=== PATIENT | male | born 1955 | race Two or more races ===

== ENCOUNTER 2020-03-17 09:25 | Outpatient (REF) | payer OTHER, SELFPAY | END 2020-03-17 09:26 | disposition home or self-care (01) | LOC: HO.LAB 09:25 | PROVIDERS: PCP Family Medicine; Visit Provider Internal Medicine | DX: Z20.828 Contact with and (suspected) exposure to other viral communicable diseases (principal) | CPT/HCPCS: C9803; U0003 ==

== ENCOUNTER 2020-04-13 07:41 | Outpatient (REF) | payer OTHER, SELFPAY | END 2020-04-13 07:42 | disposition home or self-care (01) | LOC: HO.LAB 07:41 | PROVIDERS: Visit Provider Internal Medicine | DX: Z20.822 Contact with and (suspected) exposure to COVID-19 (principal) | CPT/HCPCS: 36415; C9803; U0003 ==

== ENCOUNTER 2020-05-31 09:28 | Outpatient (REF) | payer OTHER, SELFPAY | END 2020-05-31 09:29 | disposition home or self-care (01) | LOC: HO.LAB 09:28 | PROVIDERS: Visit Provider Internal Medicine | DX: Z20.822 Contact with and (suspected) exposure to COVID-19 (principal) | CPT/HCPCS: 36415; C9803; U0003; U0005 ==

== ENCOUNTER 2020-07-01 09:35 | Outpatient (REF) | payer OTHER, SELFPAY ==
[2020-07-01 11:31] LABS: Alanine Aminotransferase 17 U/L (0-40); Anion Gap 12 (12-20); Aspartate Amino Transferase 19 U/L (5-37); Blood Urea Nitrogen 21 mg/dL (9-16); Carbon Dioxide 29 mmol/L (22-29); Chloride 104 mmol/L (96-108); Estimated Glomerular Filt Rate > 60; Lipase 7 U/L (8-78); Potassium 4.2 mmol/L (3.3-5.1); Sodium 141 mmol/L (135-145)
== END 2020-07-01 09:36 | disposition home or self-care (01) ==
LOC: HO.LAB 09:35
PROVIDERS: PCP Family Medicine; Visit Provider Family Medicine
DX: I10 Essential (primary) hypertension (principal); E78.00 Pure hypercholesterolemia, unspecified; K85.90 Acute pancreatitis without necrosis or infection, unspecified; Z79.899 Other long term (current) drug therapy
CPT/HCPCS: 36415; 80051; 82550; 82565; 83690; 84450; 84460; 84520

== ENCOUNTER 2021-04-06 11:49 | Outpatient (REF) | payer OTHER, SELFPAY ==
[2021-04-06 12:17] LABS: COVID-19 Test Negative (Negative); IDNOW Serial# 16C4AD1C
== END 2021-04-06 11:50 | disposition home or self-care (01) ==
LOC: HO.LAB 11:49
PROVIDERS: Visit Provider Internal Medicine
DX: Z20.822 Contact with and (suspected) exposure to COVID-19 (principal)
CPT/HCPCS: 87635; C9803

== ENCOUNTER 2021-04-12 09:34 | Outpatient (REF) | payer OTHER, SELFPAY ==
[2021-04-12 09:49] LABS: MANUAL DIFF FLAG NO
[2021-04-12 09:57] LABS: Basophils Percent Auto 0.5 % (0-2); Eosinophils Percent Auto 12.4 % (0-4); Hematocrit 42.2 % (42.0-52.0); Hemoglobin 14.2 g/dl (14.0-18.0); Imm Gran Abs Auto 0.02 X10*3/uL (0.00-0.03); Imm Gran Pct Auto 0.3 % (0.0-0.4); Lymphocytes Absolute Auto 1.7 X10*3/uL (1.2-4.9); Lymphocytes Percent Auto 22.3 % (20-40); Mean Corpuscular HGB Conc 33.6 g/dl (31.0-36.0); Mean Corpuscular Hemoglobin 30.7 pg (27.0-33.0); Mean Corpuscular Volume 91.3 fL (80.0-98.0); Mean Platelet Volume 10.7 fL (9.4-12.4); Monocytes Absolute Auto 0.7 X10*3/uL (0.1-1.2); Monocytes Percent Auto 8.5 % (2-11); Neutrophils Absolute Auto 4.3 x10*3/uL (2.0-8.3); Platelet Count 166 X10*3/uL (160-400); Red Blood Count 4.62 X10*6/uL (4.60-5.80); Red Cell Distribution Width 12.1 % (11.0-16.0); White Blood Count 7.7 X10*3/uL (4.8-10.8)
[2021-04-12 10:23] LABS: Alanine Aminotransferase 16 U/L (0-40); Anion Gap 10 (12-20); Aspartate Amino Transferase 16 U/L (5-37); Blood Urea Nitrogen 18 mg/dL (9-16); Carbon Dioxide 32 mmol/L (22-29); Chloride 106 mmol/L (96-108); Estimated Glomerular Filt Rate > 60; Glucose Random 97 mg/dL (60-115); Lipase 14 U/L (8-78); Potassium 4.6 mmol/L (3.3-5.1); Sodium 143 mmol/L (135-145)
== END 2021-04-12 09:35 | disposition home or self-care (01) ==
LOC: HO.LAB 09:34
PROVIDERS: PCP Family Medicine; Visit Provider Family Medicine
DX: I10 Essential (primary) hypertension (principal); E78.00 Pure hypercholesterolemia, unspecified; K85.90 Acute pancreatitis without necrosis or infection, unspecified; Z79.899 Other long term (current) drug therapy
CPT/HCPCS: 36415; 80051; 82550; 82565; 82947; 83690; 84450; 84460; 84520; 85025

== ENCOUNTER 2021-11-17 08:12 | Outpatient (REF) | payer OTHER, SELFPAY ==
[2021-11-17 09:25] LABS: Alanine Aminotransferase 16 U/L (0-40); Amylase 68 U/L (28-100); Anion Gap 13 (12-20); Aspartate Amino Transferase 20 U/L (5-37); Blood Urea Nitrogen 20 mg/dL (9-16); Carbon Dioxide 28 mmol/L (22-29); Chloride 106 mmol/L (96-108); Estimated Glomerular Filt Rate > 60; Glucose Fasting 105 mg/dL (60-99); Lipase 8 U/L (8-78); Potassium 4.5 mmol/L (3.3-5.1); Sodium 142 mmol/L (135-145)
[2021-11-17 10:01] LABS: Estimated Average Glucose 114 mg/dL; Hemoglobin A1c % 5.6 %
== END 2021-11-17 08:13 | disposition home or self-care (01) ==
LOC: HO.LAB 08:12
PROVIDERS: PCP Family Medicine; Visit Provider Family Medicine
DX: I10 Essential (primary) hypertension (principal); E11.9 Type 2 diabetes mellitus without complications; K85.90 Acute pancreatitis without necrosis or infection, unspecified
CPT/HCPCS: 36415; 80051; 82150; 82565; 82947; 83036; 83690; 84450; 84460; 84520

== ENCOUNTER 2022-06-21 08:38 | Outpatient (REF) | payer OTHER, SELFPAY ==
[2022-06-21 10:27] LABS: Alanine Aminotransferase 16 U/L (0-40); Albumin Level 3.9 g/dL (3.5-5.0); Alkaline Phosphatase 86 U/L (39-117); Amylase 73 U/L (28-100); Anion Gap 9 (12-20); Aspartate Amino Transferase 20 U/L (5-37); Bilirubin Direct 0.5 mg/dL (0.0-0.5); Bilirubin Total 1.9 mg/dL (0.0-1.0); Blood Urea Nitrogen 21 mg/dL (9-16); Carbon Dioxide 30 mmol/L (22-29); Chloride 107 mmol/L (96-108); Cholesterol 112 mg/dL; Estimated Glomerular Filt Rate > 60; HDL Cholesterol 30 mg/dL; LDL Cholesterol Calculated 61 mg/dl; Lipase 9 U/L (8-78); Potassium 4.3 mmol/L (3.3-5.1); Sodium 142 mmol/L (135-145); Triglycerides 108 mg/dL
== END 2022-06-21 08:39 | disposition home or self-care (01) ==
LOC: HO.LAB 08:38
PROVIDERS: PCP Family Medicine; Visit Provider Family Medicine
DX: I10 Essential (primary) hypertension (principal); E78.00 Pure hypercholesterolemia, unspecified; Z79.899 Other long term (current) drug therapy; K85.90 Acute pancreatitis without necrosis or infection, unspecified
CPT/HCPCS: 36415; 80051; 80061; 80076; 82150; 82565; 83690; 84520

== ENCOUNTER 2022-10-05 14:11 | Outpatient (REF) | payer OTHER, SELFPAY ==
[2022-10-05 14:40] LABS: MANUAL DIFF FLAG NO
[2022-10-05 15:54] LABS: Basophils Percent Auto 0.6 % (0-2); Eosinophils Absolute Auto 0.8 X10*3/uL (0.0-0.4); Eosinophils Percent Auto 11.4 % (0-4); Hematocrit 39.1 % (42.0-52.0); Hemoglobin 13.1 g/dl (14.0-18.0); Imm Gran Abs Auto 0.02 X10*3/uL (0.00-0.03); Imm Gran Pct Auto 0.3 % (0.0-0.4); Lymphocytes Absolute Auto 1.6 X10*3/uL (1.2-4.9); Lymphocytes Percent Auto 23.2 % (20-40); Mean Corpuscular HGB Conc 33.5 g/dl (31.0-36.0); Mean Corpuscular Hemoglobin 30.7 pg (27.0-33.0); Mean Corpuscular Volume 91.6 fL (80.0-98.0); Mean Platelet Volume 11.6 fL (9.4-12.4); Monocytes Absolute Auto 0.6 X10*3/uL (0.1-1.2); Monocytes Percent Auto 8.2 % (2-11); Neutrophils Absolute Auto 3.8 x10*3/uL (2.0-8.3); Neutrophils Percent Auto 56.3 % (45-73); Platelet Count 150 X10*3/uL (160-400); Red Blood Count 4.27 X10*6/uL (4.60-5.80); Red Cell Distribution Width 12.6 % (11.0-16.0); White Blood Count 6.7 X10*3/uL (4.8-10.8)
[2022-10-05 16:40] LABS: Lipase 18 U/L (8-78)
== END 2022-10-05 14:12 | disposition home or self-care (01) ==
LOC: HO.LAB 14:11
PROVIDERS: PCP Family Medicine; Visit Provider Family Medicine
DX: K21.9 Gastro-esophageal reflux disease without esophagitis (principal); R10.13 Epigastric pain; K85.90 Acute pancreatitis without necrosis or infection, unspecified
CPT/HCPCS: 36415; 83690; 85025

== ENCOUNTER 2022-10-06 15:51 | Outpatient (REF) | payer OTHER, SELFPAY | END 2022-10-06 15:52 | disposition home or self-care (01) | LOC: HO.LNP 15:51 | PROVIDERS: Visit Provider Family Medicine | DX: R10.13 Epigastric pain (principal); K21.9 Gastro-esophageal reflux disease without esophagitis | CPT/HCPCS: 87338 ==

== ENCOUNTER 2023-02-03 08:55 | Outpatient (REF) | payer MEDICARE, SELFPAY ==
[2023-02-03 10:27] LABS: Alanine Aminotransferase 17 U/L (0-40); Anion Gap 9 (12-20); Aspartate Amino Transferase 20 U/L (5-37); Blood Urea Nitrogen 20 mg/dL (9-16); Carbon Dioxide 30 mmol/L (22-29); Chloride 105 mmol/L (96-108); Estimated Glomerular Filt Rate > 60; Lipase 15 U/L (8-78); Potassium 4.3 mmol/L (3.3-5.1); Sodium 140 mmol/L (135-145)
== END 2023-02-03 08:56 | disposition home or self-care (01) ==
LOC: HO.LAB 08:55
PROVIDERS: PCP Family Medicine; Visit Provider Family Medicine
DX: I10 Essential (primary) hypertension (principal); E78.00 Pure hypercholesterolemia, unspecified; Z79.899 Other long term (current) drug therapy; K85.90 Acute pancreatitis without necrosis or infection, unspecified
CPT/HCPCS: 36415; 80051; 82550; 82565; 83690; 84450; 84460; 84520

== ENCOUNTER 2023-03-07 07:15 | Day surgery (SDC) | payer MEDICARE, SELFPAY ==
[2023-03-05 10:52] VITALS: BMI 25.9
--- NOTE | 2023-03-06 08:24 | P.CONAN_ITS ---
Documented by User: Cindy King NP 03/06/23 08:36 HPI - Anesthesia Eval Consult details Narrative: 67yo M for Upper Endoscopy and Colonoscopy CAD s/p CABG. Stable at PCP 12/2022 [facility] Past Medical History Medical History HTN (hypertension) Elevated cholesterol CAD (coronary artery disease) Surgical History Surgical History History of incisional hernia repair Hx of right inguinal hernia repair Hx of endoscopic retrograde cholangiopancreatography H/O colonoscopy History of Whipple procedure Hx of coronary artery bypass graft Social History Social History Patient Tobacco Use Status: Former Tobacco user Are you DNR?: No Advance Directives: No Advance Directives Information Provided: Yes Nutrition Risks: No Nutritional Risk Meds Allergies Allergy/AdvReac Type Severity Reaction Status Date / Time No Known Allergies Allergy Verified 03/07/23 08:42 [No Known Allergies*] Home Medications Medication Instructions Recorded Confirmed Last Taken Type atorvastatin 20 mg tablet 20 mg PO BEDTIME 03/05/23 03/05/23 Unknown History coenzyme Q10 10 mg capsule (Co 10 mg PO DAILY 03/05/23 03/05/23 Unknown History Q-10) [id number]-afceozpy-ezlyemu 2 cap PO BID 03/05/23 03/05/23 Unknown History 6,000-19,000-30,000 unit capsule,delayed rel (Creon) metoprolol succinate 50 mg 50 mg PO DAILY 03/05/23 03/05/23 Unknown History tablet,extended release 24 hr multivitamin 1 tab PO DAILY 03/05/23 03/05/23 Unknown History omeprazole 20 mg capsule,delayed 20 mg PO BEDTIME 03/05/23 03/05/23 Unknown History release Exam Height,Weight and Vital Signs: Height 5 ft 7.5 in Weight 76.204 kg Assessment and Plan Assessment Anesthesia Assessment: Chart Reviewed Documented by User: Sarah Vergara MD 03/07/23 08:59 [facility] Past Medical History Medical History HTN (hypertension) Elevated cholesterol CAD (coronary artery disease) Family History Family history of problems with anesthesia: No Surgical History Surgical History History of incisional hernia repair Hx of right inguinal hernia repair Hx of endoscopic retrograde cholangiopancreatography H/O colonoscopy History of Whipple procedure Hx of coronary artery bypass graft History of Problems with Anesthesia: No Social History Social History Patient Tobacco Use Status: Former Tobacco user Are you DNR?: No Advance Directives: No Advance Directives Information Provided: Yes Nutrition Risks: No Nutritional Risk Meds Allergies Allergy/AdvReac Type Severity Reaction Status Date / Time No Known Allergies Allergy Verified 03/07/23 08:42 [No Known Allergies*] Home Medications Medication Instructions Recorded Confirmed Last Taken Type atorvastatin 20 mg tablet 20 mg PO BEDTIME 03/05/23 03/05/23 Unknown History coenzyme Q10 10 mg capsule (Co 10 mg PO DAILY 03/05/23 03/05/23 Unknown History Q-10) jwogbw-[id number]-mhphttp 2 cap PO BID 03/05/23 03/05/23 Unknown History 6,000-19,000-30,000 unit capsule,delayed rel (Creon) metoprolol succinate 50 mg 50 mg PO DAILY 03/05/23 03/05/23 Unknown History tablet,extended release 24 hr multivitamin 1 tab PO DAILY 03/05/23 03/05/23 Unknown History omeprazole 20 mg capsule,delayed 20 mg PO BEDTIME 03/05/23 03/05/23 Unknown History release Exam Airway Mallampati Class: III TM Dist: >3cm Neck ROM: Full Heart: rrr Lungs: cta Assessment and Plan Assessment Anesthesia Assessment: Anesthesia Plan Discussed Final Anesthetic Review Family History of Problems with Anesthesia: No History of Problems with Anesthesia: No NPO: Yes ASA Class: III Final Preanesthetic Review: No Changes in Pt Med Stat, Meds/Allgs Chart Reviewed, Consent Obtained/Reviewed and Anes Risks/Benef Reviewed Anesthetic Plan Anesthetic Plan: MAC: Disposition: Standard PACU
[2023-03-07 08:42] VITALS: BMI 25.5
[2023-03-07] MEDS: Lactated Ringers 1,000 ML 100 ML IVCONT (08:47)
[2023-03-07 08:49] VITALS: BP 156/77; PULSE 68; RESP 18; TEMP 36.2; O2SAT 97
[2023-03-07 10:39] VITALS: BP 121/75; PULSE 63; RESP 18; TEMP 36.3; O2SAT 95
--- NOTE | 2023-03-07 10:40 | P.BOP_ITS ---
Brief Operative Note Date of Service: 03/07/23 Pre-op diagnosis: Abdominal pain, screening Post-op diagnosis: other (Gastritis, Diverticulosis) Procedure: EGD with biopsies, Colonoscopy to the cecum and TI Surgeon: Ladarius Oneal MD Anesthesia: MAC Was an Infectious Diseases Physician used for this Procedure?: No Estimated blood loss (mL): 2.0 Pathology: other (A. Gastric remnant) Condition: stable Disposition: PACU
[2023-03-07 10:54] VITALS: BP 134/76; PULSE 55; RESP 16; TEMP 36.2; O2SAT 97
--- NOTE | 2023-03-07 11:48 | OP_ITS ---
DATE OF SERVICE: 03/07/2023 SURGEON: Ladarius Oneal MD INDICATIONS: The patient presents for evaluation of abdominal discomfort and colorectal cancer screening. Full consent has been obtained from him for this, including risks of bleeding and perforation. PREOPERATIVE DIAGNOSIS: Abdominal discomfort and colorectal cancer screening. POSTOPERATIVE DIAGNOSIS: PROCEDURE PERFORMED: Esophagogastroduodenoscopy with biopsies and colonoscopy to the cecum and terminal ileum. ESTIMATED BLOOD LOSS: COMPLICATIONS: ANESTHESIA: Monitored anesthesia care. ASSISTANTS: SPECIMENS: POSTOPERATIVE DIAGNOSES: Abdominal discomfort and colorectal cancer screening, gastritis involving the gastric remnant, small hiatal hernia, diverticulosis, small internal hemorrhoids, external hemorrhoids. DESCRIPTION OF PROCEDURE: The patient was placed in the left lateral decubitus position. The Olympus video gastroscope was passed in the posterior oropharynx and upper esophagus under direct vision. The scope was passed slowly to the distal esophagus. The gastroesophageal junction appeared normal at 37 cm. There was no sign of any esophagitis nor Henry esophagus. The scope entered the stomach. There was a small hiatal hernia. The gastric remnant had changes consistent with a probable bile-induced gastritis with some streaks of erythema and edema. There was some minimal friability. The anastomosis was visualized and appeared normal. The small bowel was cannulated and appeared normal as well. The scope was withdrawn back into the gastric remnant. The anastomosis was fully visualized and appeared normal without ulceration nor stricture. The scope was retroflexed visualizing the proximal stomach carefully, which appeared normal, other than the changes of the above mentioned gastritis. The scope was straightened. Biopsies were obtained from the gastric remnant. The scope was withdrawn back in the esophagus. The esophageal mucosa appeared normal. The scope was withdrawn from the patient. He was turned around for the colonoscopy. The digital rectal exam revealed some external hemorrhoids. The Olympus video pediatric colonoscope was entered into the rectum and advanced easily to the cecum. Once in the cecum, I did identify normal-appearing cecal pouch with appendiceal orifice and a normal-appearing ileocecal valve. The terminal ileum was cannulated and appeared normal. The scope was withdrawn back in the colon. The entire cecum and ileocecal valve appeared normal. The scope was then slowly withdrawn assessing all mucosal surfaces carefully. Preparation was excellent. I did not visualize any sign of polyps, colitis, nor angiodysplasia. There was a mild amount of sigmoid diverticulosis. In the rectum, scope was retroflexed visualizing internal hemorrhoids, but no other pathology. The rectal mucosa appeared normal. Scope was straightened and withdrawn from the patient. He tolerated both procedures well and was returned to the recovery area in stable condition. IMPRESSION: 1. Probable bile-induced gastritis involving the gastric remnant. 2. Small hiatal hernia. 3. Diverticulosis. 4. Small internal hemorrhoids. 5. External hemorrhoids. PLAN: The results of the biopsies will be checked. I would recommend a repeat colonoscopy in 5 years for further screening. He was advised to continue his current regimen of the omeprazole, sucralfate, and Creon. If things are stable, he will see me again on a p.r.n. basis. He was advised to resume his aspirin tomorrow, but avoid NSAIDs for at least a week. This has all been discussed with his . MD CARMEN Mchugh/DANIELA / [phone] MTDD
== END 2023-03-07 11:12 | disposition home or self-care (01) ==
PROVIDERS: PCP Family Medicine; Visit Provider Internal Medicine
PROC: (CPT 43239; principal; 2023-03-07 09:30)
DX: Z12.11 Encounter for screening for malignant neoplasm of colon (principal); K57.30 Diverticulosis of large intestine without perforation or abscess without bleeding; K64.8 Other hemorrhoids; K64.4 Residual hemorrhoidal skin tags; R10.84 Generalized abdominal pain; K29.50 Unspecified chronic gastritis without bleeding; K21.9 Gastro-esophageal reflux disease without esophagitis; I25.10 Atherosclerotic heart disease of native coronary artery without angina pectoris; E78.00 Pure hypercholesterolemia, unspecified; I10 Essential (primary) hypertension; Z79.82 Long term (current) use of aspirin; Z79.899 Other long term (current) drug therapy; Z87.891 Personal history of nicotine dependence
CPT/HCPCS: 43239; G0121; 88305; 88342; J2704

== ENCOUNTER 2023-06-06 14:32 | Outpatient (AMB) | payer MEDICARE, MEDICAID, SELFPAY ==
[2023-06-06 14:38] VITALS: BP 138/80; PULSE 61; BMI 25.9
--- NOTE | 2023-06-06 14:38 | MHC.OFFVIS ---
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 In the past, has seen Dr. Rios but not recently. Has a history of coronary artery disease and underwent coronary artery bypass surgery in 2002. Otherwise, it seems that he is generally doing well. Has not had any complaints like angina or shortness of breath or in fact anything cardiac sounding. Within limits of his activity, no major issues. [facility] Medical History (Updated 06/06/23 @ 15:25 by Manoj Chavez MD) Neuropathy COVID DJD (degenerative joint disease) Ampullary adenoma Bleeding hemorrhoids Diverticulosis Atherosclerotic cardiovascular disease Surgical History (Updated 06/06/23 @ 15:25 by Manoj Chavez MD) H/O Whipple procedure S/P CABG x 1 Family History (Updated 06/06/23 @ 14:40 by Gisele Alcala) Mother No problems noted. Brother Heart problem Father Heart problem Social History (Updated 06/06/23 @ 14:41 by Gisele Alcala) Alcohol intake: never Patient Tobacco Use Status: Never used Tobacco Review of Systems Const All systems reviewed & are unremarkable except as noted in HPI and below Reports as per HPI and Reports no additional complaints Eyes Reports as per HPI and Denies no additional complaints ENT Denies no additional complaints and Reports as per HPI Card Reports as per HPI, Reports no additional complaints, Denies acrocyanosis, Denies chest pain, Denies leg edema, Denies lightheadedness, Denies palpitations and Denies dyspnea Resp Reports as per HPI, Denies no additional complaints and Denies dyspnea GI Reports as per HPI and Denies no additional complaints Reports no additional complaints and Reports as per HPI Musc Reports no additional complaints and Reports as per HPI Skin/Breast Reports system reviewed and no additional complaints, except as documented Neuro Reports no additional complaints and Reports as per HPI Psych Reports no additional complaints and Reports as per HPI Endo Reports no additional complaints, Reports as per HPI and Denies palpitations Arvin/Lymph Reports no additional complaints and Reports as per HPI Aller/Immun Reports no additional complaints and Reports as per HPI Physical Exam Vital Signs: Last Vital Signs Pulse 61 06/06/23 14:38 BP 138/80 06/06/23 14:38 BMI result Body Mass Index 25.9 Const General: comfortable and no acute distress Orientation/consciousness: patient oriented x3 HEENT Other: Unremarkable Head: Yes normal to inspection Neck Neck: Yes normal visual inspection Chest Chest palpation & inspection: normal inspection of the chest Resp Auscultation: clear to auscultation bilaterally Cardio Palpation: normal PMI Heart sounds: S1 normal heart sound present, S2 normal heart sound present, no gallops, no murmurs and no rubs GI Palpation (GI): Soft to palpation Back/Spine/Pelvis Other: unremarkable Skin General skin exam: no rashes or lesions noted Neuro General: patient oriented x3 Extrem General: Yes normal to inspection Psych Mental Status: mental status grossly normal Office Procedures EKG Details: EKG with sinus rhythm at 61/Min; can not exclude old inferior infarct; [place]. [address]-[id number], Complete Assessment & Plan Assessment & Plan (1) Status post aorto-coronary artery bypass graft: Code(s): Z95.1 - Presence of aortocoronary bypass graft (2) Atherosclerotic cardiovascular disease: Code(s): I25.10 - Atherosclerotic heart disease of [place] coronary artery without angina pectoris Plan Remote history of coronary artery bypass surgery but otherwise generally stable. Check echocardiogram for cardiac function/wall motion findings/valvular abnormalities. On aspirin/beta-blockers/statins. Check lipids/LFTs. Discussed with significant other. Orders: Orders Liver Panel Today I25.10 - Atherosclerotic heart disease of [place] coronary artery without angina pectoris, Z95.1 - Presence of aortocoronary bypass graft CA echo transthoracic complete Today I25.10 - Atherosclerotic heart disease of [place] coronary artery without angina pectoris, Z95.1 - Presence of aortocoronary bypass graft Lipid Panel Today E78.5 - Hyperlipidemia, unspecified, Z95.1 - Presence of aortocoronary bypass graft Coding Level of Care Code New Pt Level 3 (91714) Diagnoses Status post aorto-coronary artery bypass graft Z95.1 Atherosclerotic cardiovascular disease I25.10 CPT Codes EKG - CPT: 35041-[id number], Complete ([id number])
== END 2023-06-06 14:58 | disposition home or self-care (01) ==
PROVIDERS: PCP Family Medicine; Visit Provider Internal Medicine
DX: Z95.1 Presence of aortocoronary bypass graft (principal); I25.10 Atherosclerotic heart disease of native coronary artery without angina pectoris
CPT/HCPCS: 93010; 99203

== ENCOUNTER → 2023-06-06 14:32 | Outpatient (BNVA) | payer MEDICARE, MEDICAID, SELFPAY | PROVIDERS: PCP Family Medicine; Visit Provider Internal Medicine | DX: I25.10 Atherosclerotic heart disease of native coronary artery without angina pectoris (principal); Z95.1 Presence of aortocoronary bypass graft | CPT/HCPCS: 93005; 99202 ==

== ENCOUNTER 2023-06-11 08:55 | Outpatient (REF) | payer MEDICARE, MEDICAID, SELFPAY ==
[2023-06-11 09:55] LABS: Estimated Average Glucose 114 mg/dL; Hemoglobin A1c % 5.6 % (<6.0)
[2023-06-11 10:10] LABS: Glucose Fasting 94 mg/dL (60-99); Lipase 14 U/L (8-78)
[2023-06-11 10:13] LABS: Alanine Aminotransferase 16 U/L (0-40); Albumin Level 3.8 g/dL (3.5-5.0); Alkaline Phosphatase 101 U/L (39-117); Aspartate Amino Transferase 19 U/L (5-37); Bilirubin Direct 0.4 mg/dL (0.0-0.5); Bilirubin Total 1.1 mg/dL (0.0-1.0); Cholesterol 101 mg/dL (<200); HDL Cholesterol 31 mg/dL (>40); LDL Cholesterol Calculated 49 mg/dL (<100); Total Protein 6.5 g/dL (6.5-8.0); Triglycerides 107 mg/dL (<150)
[2023-06-11 10:51] LABS: Creatinine Urine 262.39 mg/dL; Microalbum/Creatinine Ratio Ur 3.8 ug/mg cr (<30)
== END 2023-06-11 08:56 | disposition home or self-care (01) ==
LOC: HO.LAB 08:55
PROVIDERS: Absent Provider Family Medicine; PCP Family Medicine; Visit Provider Internal Medicine
DX: K85.90 Acute pancreatitis without necrosis or infection, unspecified (principal); E11.9 Type 2 diabetes mellitus without complications; E78.5 Hyperlipidemia, unspecified; Z95.1 Presence of aortocoronary bypass graft
CPT/HCPCS: 36415; 80061; 80076; 82043; 82570; 82947; 83036; 83690

== ENCOUNTER → 2023-06-29 13:55 | Outpatient (REF) | payer MEDICARE, MEDICAID, SELFPAY ==
--- NOTE | 2023-06-29 14:00 | CA_ITS ---
Transthoracic Echocardiogram Patient (Last, First, Middle): Waqar Yen, Gender: Male Date of : 1955 Age: 67 Procedure Date: 06/29/2023 Procedure Type: Transthoracic Echocardiogram Location: OP Height: 170.18 cm Weight: 75.3 kg BSA: 1.87 m2 Heart Rate: bpm BP: 115 / 70 mmHg Builder Operator: NING Referring MD: Manoj Chavez MD Symptoms: I25.10 - Atherosclerotic heart disease of [place] coronary artery without... Study Quality: Fair ECG Rhythm: Sinus Conclusions: - Normal left ventricular cavity size. There is normal left ventricular wall thickness. The left ventricular systolic function is mildly decreased. The visually estimated ejection fraction is between 40-45%. - The inferolateral wall, the basal inferior, mid inferior, and basal inferoseptal segments are akinetic. - Normal right ventricular cavity size. There is mildly decreased right ventricular systolic function. Findings Left Ventricle Normal left ventricular cavity size. There is normal left ventricular wall thickness. The left ventricular systolic function is mildly decreased. The visually estimated ejection fraction is between 40-45%. Abnormal diastolic function is noted. Spectral Doppler is indicative of an impaired relaxation filling pattern. E/E prime ratio is between 8 and 15 consistent with indeterminate filling pressures. Wall Motion Rest Echo Findings The inferolateral wall, the basal inferior, mid inferior, and basal inferoseptal segments are akinetic. Right Ventricle Normal right ventricular cavity size. There is mildly decreased right ventricular systolic function. Atria The left atrium is normal in size. The right atrium is normal in size. Aortic Valve Normal aortic valve structure and function. There is no aortic valve stenosis. There is no aortic valve regurgitation. Mitral Valve Normal mitral valve structure and function. There is trace mitral valve regurgitation. There is no mitral valve stenosis. Pulmonic Valve Normal pulmonic valve structure and function. There is trace pulmonic valve regurgitation. Tricuspid Valve Normal tricuspid valve structure. There is trace tricuspid valve regurgitation. Tricuspid regurgitation envelope is inadequate for calculation of right ventricular systolic pressure. Indeterminate right atrial pressure. Great Vessels All visible segments of the aorta are normal in size. The visualized portions of the pulmonary artery and branches are normal. Venous The inferior vena cava was not well visualized. Pericardium/Pleural Prominent epicardial adipose tissue noted. There is no evidence of pericardial effusion. Prior Study Comparison Changes noted compared to prior study dated: 07/21/2016. EF 40-45%, basal to mid inferior and inferolateral [place] are akinetic. basal inferior septum is also akinetic. Mild RV dysfunction. Measurements 2D Linear Measurements IVSd: 0.72 0.6-0.9/0.6-1.0 cm LVIDd: 5.42 3.9-5.3/4.2-5.9 cm LVIDd Index: 2.90 2.4-3.2/2.2-3.1 cm/m2 LVIDs: 3.88 2.0-3.6 cm LVPWd: 0.94 0.7-1.1 cm LA Diam: 4.60 2.7-3.8/3.0-4.0 cm LAIDs Index: 2.46 1.5-2.3 cm/m2 LV Mass: 202.72 67-162/88-224 g LV Mass Index: 108.41 43-95/49-115 g/m2 LVOT Diam: 2.20 3.0+(-)1.3 cm 2D Systolic Function EF 4C: 47.80 >55% EF 2C: 57.70 >55% EF BiP: 52.30 >55% Mitral Valve MV Pk E: 0.76 MV PK A: 0.76 MV Decel Time: 205.00 E/A: 1.00 E'Lateral: 11.10 E'Medial: 5.55 E/E' Med: 13.70 E/E' Lat: 6.80 PHT: 60.00 MVA PHT: 3.67 Decel [place]: 3.69 Aortic Valve AoV Pk Jabari: 1.21 AoV Mn Jabari: 0.78 AoV VTI: 0.24 AoV Pk Grad: 6.00 Aov Mn Grad: 3.00 VITALIY Cont.VTI: 3.12 LVOT LVOT Pk Jabari: 0.97 LVOT Mn Jabari: 0.62 LVOT VTI: 0.20 LVOT Pk Grad: 4.00 LVOT Mn Grad: 2.00 LVOT Diam: 2.20 LVOT Area: 3.80 Diastolic Function MV Pk E: 0.76 MV Pk A: 0.76 E/A: 1.00 E'Medial: 5.55 E/E' Med: 13.70 E' Laterial: 11.10 E/E' Lat: 6.80 Right Ventricle TAPSE (mm): 14.10 TVS' Jabari: 10.00 Great Vessels Aorta Sinus of Valsalva: 3.60 2.0-3.5 cm Ao Asc: 3.40 2.1-3.4 cm Pulmonary Valve PV Pk Jabari: 1.25 Peak PV Grad: 6.00 Updated in Other Vendor System with Status of Final Omid Navarro MD electronically signed on 06/30/2023 6:36:04 PM with status of Final
== END ==
LOC: HO.CARD 13:55
PROVIDERS: PCP Family Medicine; Visit Provider Internal Medicine
DX: I25.10 Atherosclerotic heart disease of native coronary artery without angina pectoris (principal); Z95.1 Presence of aortocoronary bypass graft
CPT/HCPCS: 93306

== ENCOUNTER → 2023-06-29 14:00 | Outpatient (BNV) | payer MEDICARE, MEDICAID, SELFPAY | PROVIDERS: PCP Family Medicine; Visit Provider Internal Medicine Cardiovascular Disease | DX: I25.10 Atherosclerotic heart disease of native coronary artery without angina pectoris (principal); R93.1 Abnormal findings on diagnostic imaging of heart and coronary circulation | CPT/HCPCS: 93306 ==

== ENCOUNTER → 2023-07-30 08:01 | Outpatient (REF) | payer MEDICARE, MEDICAID, SELFPAY ==
--- NOTE | ~2023-07-30 | NM_ITS ---
EXERCISE MYOCARDIAL PERFUSION STUDY INDICATION: Chest pain, assess for coronary disease and ischemia TECHNIQUE: The patient was brought in for an exercise perfusion study on 07/30/2023. Patient performed exercise as per Brad protocol and was injected 25 mCi of sestamibi once target heart rate was achieved. Images were obtained using the SPECT gamma camera interlaced with the gating device. Images were obtained in supine position. Resting perfusion study was performed on 07/31/2023. Patient was administered 25 mCi of sestamibi intravenously at rest. Images were then obtained in supine position. Images were processed with the software and compared side to side in short axis, horizontal long axis and vertical long axis views. Total DLP 111mGy-cm. FINDINGS: Raw images were reviewed. The stress perfusion study showed diminished tracer uptake along the inferior wall. There is improvement with CT attenuation correction and hence could've components of diaphragmatic attenuation artifact. The gated study shows diminished LV systolic function with calculated LVEF of 43%. LV cavity is normal in size. The gated study shows diminished contractility in the inferior wall. Resting study shows reduced perfusion in the inferior wall but slight improvement compared to stress perfusion. There is also probably some subdiaphragmatic uptake interfering. Gating at rest reveals reduced contractility in the inferior wall. The findings are consistent with perfusion defect in the basal to mid inferior/inferoseptal/inferolateral wall with reversible and fixed components. NM/NM cardiolite stress test IMPRESSION: 1. Myocardial perfusion imaging study shows mixed ischemia/infarction pattern in the basal to mid inferior wall and adjacent infero-septal, inferolateral wall. 2. Gated LVEF is 43% during stress and 32% during rest. 3. Transient ischemic dilatation not present. EKG component of the test reported separately.
--- NOTE | 2023-07-30 08:03 | CA_ITS ---
Acquisition Time: 2023-07-30 08:03:27 Total Exercise Time: 00:07:12 Test Indications: Chest Pain Medications: ASA ATORVASTATIN CREON METOPROLOL OMEPRAZOLE Protocol: PRANAV Max HR: 151 BPM 97% of Pred: 155 BPM Max BP: 180/078 mmHG Max Work Load: 8.8 METS Exercise stress test exercise 7 min 12 sec of Pranav protocol achieving 95% MPHR, with mild SOB, no chest discomfort, with isolated PVCs, with resting HTN, normotensive response to exercise, wqithout EKG changes from baseline. Nuclear images pending. Test reviewed with Dr. Cobos Referred By: Manoj Chavez Overread By: Meena Pereira
== END ==
LOC: HO.CARD 08:01
PROVIDERS: PCP Family Medicine; Visit Provider Internal Medicine
DX: R07.2 Precordial pain (principal)
CPT/HCPCS: 78452; 93017; A9500

== ENCOUNTER → 2023-07-30 08:03 | Outpatient (BNV) | payer MEDICARE, MEDICAID, SELFPAY | PROVIDERS: PCP Family Medicine; Visit Provider Nurse Practitioner | DX: R07.9 Chest pain, unspecified (principal) | CPT/HCPCS: 78452; 93016; 93018 ==

== ENCOUNTER 2023-08-31 13:32 | Outpatient (REF) | payer MEDICARE, MEDICAID, SELFPAY ==
--- NOTE | ~2023-08-31 | CT_ITS ---
EXAMINATION: CT ABDOMEN WITHOUT CONTRAST CLINICAL INFORMATION: Rule out ventral hernia and hiatal hernia. COMPARISON: CT abdomen and pelvis 09/20/2016. TECHNIQUE: Contiguous axial thin section helical images of the abdomen were performed without contrast. The data set was reformatted in the coronal and sagittal planes and reviewed on an independent workstation. This CT examination was performed using dose optimization techniques as appropriate, variously including the following: *Automated exposure control *Adjustment of mA and/or kV according to patient size (this includes techniques or standardized protocols for targeted exams where dose is matched to indication/reason for exam; i.e. extremities or head) *Use of iterative reconstruction technique DLP: 301 mGy-cm FINDINGS: LUNG BASES: Scarring or atelectasis at the lung bases. Micronodule right lower lobe series 6 image 74 is stable compared to prior. Median sternotomy. Significant coronary artery calcium. No hiatal hernia. LIVER, GALLBLADDER, BILIARY TREE: Noncontrast attenuation of the liver appears normal. No discrete liver mass. Pneumobilia. Cholecystectomy. PANCREAS: Status post Whipple. No discrete pancreatic mass or pancreatic ductal dilatation. SPLEEN: Normal size spleen. ADRENAL GLANDS AND KIDNEYS: No adrenal mass. No nephrolithiasis or hydronephrosis. BOWEL LOOPS: The small and large bowel are normal in caliber. Whipple reconstruction. Appendix appears normal. Mild colonic diverticulosis in the distal colon. LYMPH NODES: No bulky adenopathy. VASCULAR: Mild aortoiliac atherosclerosis. No aortic aneurysm. BONES: Mild degenerative changes in the spine. ABDOMINAL WALL: Small fat-containing umbilical hernia. Midline surgical changes. No visible ventral hernia. CT/CT abdomen wo IV con IMPRESSION: Status post Whipple. No hiatal hernia or ventral hernia. Small fat-containing umbilical hernia.
[2023-08-31] MEDS: Barium Sulfate Oral (Berry) 450 ML ORAL.SUSP PO (14:59)
== END 2023-08-31 13:33 | disposition home or self-care (01) ==
LOC: HO.CT 13:32
PROVIDERS: PCP Family Medicine; Visit Provider Family Medicine
DX: R10.13 Epigastric pain (principal)
CPT/HCPCS: 74150

== ENCOUNTER 2023-09-17 14:40 | Outpatient (AMB) | payer MEDICARE, MEDICAID, SELFPAY ==
[2023-09-17 14:48] VITALS: BP 132/64; BMI 26.0
--- NOTE | 2023-09-17 14:48 | A.OFFVIS_ITS ---
Vital Signs 09/17/23 14:48 Height 5 ft 7 in Weight 166 lb 3.657 oz BMI 26.0 BP 132/64 Blood Pressure Location Rt brachial Position Sitting Intake Visit Reasons: following up with Stress tests Allergies No Known Allergies [No Known Allergies*] Allergy (Verified 09/17/23 14:49) Medication List - Last Reconciled 09/17/23 by Manoj Chavez MD aspirin (Adult Aspirin Regimen) 81 mg PO DAILY atorvastatin 20 mg PO BEDTIME coenzyme Q10 (Co Q-10) 10 mg PO DAILY eumcao-ggnfvmcc-ruiquur 6,000-19,000 -30,000 unit (Creon) 2 caps PO BID ylwmrs-jbreucfa-htkxzpn 6,000-19,000 -30,000 unit (Creon) caps PO metoprolol succinate ER 50 mg PO DAILY multivitamin 1 tab PO DAILY omeprazole 20 mg PO DAILY HPI Comments Details: Waqar returns for follow-up. Recently seen in consultation regarding coronary disease. In the past, has seen Dr. Rios but not recently. Has a history of coronary artery disease and underwent coronary artery bypass surgery in 2002. Overall, he is doing good. No cardiac symptoms whatsoever. [facility] Medical History Neuropathy COVID DJD (degenerative joint disease) Ampullary adenoma Bleeding hemorrhoids Diverticulosis Atherosclerotic cardiovascular disease HTN (hypertension) Elevated cholesterol CAD (coronary artery disease) Surgical History H/O Whipple procedure S/P CABG x 1 History of incisional hernia repair Hx of right inguinal hernia repair Hx of endoscopic retrograde cholangiopancreatography H/O colonoscopy History of Whipple procedure Hx of coronary artery bypass graft Family History Mother No problems noted. Brother Heart problem Father Heart problem Social History Alcohol intake: never Patient Tobacco Use Status: Never used Tobacco Review of Systems Const All systems reviewed & are unremarkable except as noted in HPI and below Reports as per HPI and Reports no additional complaints Eyes Reports as per HPI and Denies no additional complaints ENT Denies no additional complaints and Reports as per HPI Card Reports as per HPI, Reports no additional complaints, Denies acrocyanosis, Denies chest pain, Denies leg edema, Denies lightheadedness, Denies palpitations and Denies dyspnea Resp Reports as per HPI, Denies no additional complaints and Denies dyspnea GI Reports as per HPI and Denies no additional complaints Reports no additional complaints and Reports as per HPI Musc Reports no additional complaints and Reports as per HPI Skin/Breast Reports system reviewed and no additional complaints, except as documented Neuro Reports no additional complaints and Reports as per HPI Psych Reports no additional complaints and Reports as per HPI Endo Reports no additional complaints, Reports as per HPI and Denies palpitations Arvin/Lymph Reports no additional complaints and Reports as per HPI Aller/Immun Reports no additional complaints and Reports as per HPI Physical Exam Vital Signs: Last Vital Signs BP 132/64 09/17/23 14:48 BMI result Body Mass Index 26.0 Const General: comfortable and no acute distress Orientation/consciousness: patient oriented x3 HEENT Other: Unremarkable Head: Yes normal to inspection Neck Neck: Yes normal visual inspection Chest Chest palpation & inspection: normal inspection of the chest Resp Auscultation: clear to auscultation bilaterally Cardio Palpation: normal PMI Heart sounds: S1 normal heart sound present, S2 normal heart sound present, no gallops, no murmurs and no rubs GI Palpation (GI): Soft to palpation Back/Spine/Pelvis Other: unremarkable Skin General skin exam: no rashes or lesions noted Neuro General: patient oriented x3 Extrem General: Yes normal to inspection Psych Mental Status: mental status grossly normal Assessment & Plan Assessment & Plan (1) Status post aorto-coronary artery bypass graft: Code(s): Z95.1 - Presence of aortocoronary bypass graft Category: Medical (2) Atherosclerotic cardiovascular disease: Code(s): I25.10 - Atherosclerotic heart disease of [place] coronary artery without angina pectoris Category: Medical Plan Cardiac studies reviewed. Echocardiogram with LVEF of 40-45%. Inferior, inferoseptal, inferolateral akinesis. No significant valvular findings. Myocardial perfusion imaging study shows mixed ischemia/infarction pattern in the basal to mid inferior wall as well as adjacent inferoseptal/inferolateral goodrich. Overall, abnormal testing as above, remote CABG history, but clinically absolutely no symptoms. In this instance, we can continue medical management at least for the time being. We discussed about chest pain type symptoms and that he should report to us immediately. In that instance, he will need a diagnostic catheterization. Otherwise, we can continue to follow medically. Discussed with significant other. Total time spent including review of data, counseling, documentation, coordination care-31 minutes. Coding Level of Care Code Est Pt Level 4 (32925) Diagnoses Status post aorto-coronary artery bypass graft Z95.1 Atherosclerotic cardiovascular disease I25.10
== END 2023-09-17 15:05 | disposition home or self-care (01) ==
PROVIDERS: PCP Family Medicine; Visit Provider Internal Medicine
DX: Z95.1 Presence of aortocoronary bypass graft (principal); I25.10 Atherosclerotic heart disease of native coronary artery without angina pectoris
CPT/HCPCS: 99214

== ENCOUNTER → 2023-09-17 14:40 | Outpatient (BNVA) | payer MEDICARE, MEDICAID, SELFPAY | PROVIDERS: PCP Family Medicine; Visit Provider Internal Medicine | DX: I25.10 Atherosclerotic heart disease of native coronary artery without angina pectoris (principal); Z95.1 Presence of aortocoronary bypass graft | CPT/HCPCS: 99212 ==

== ENCOUNTER 2023-12-04 12:26 | Outpatient (AMB) | payer MEDICARE, MEDICAID, SELFPAY ==
[2023-12-04 12:28] VITALS: BP 118/76; PULSE 68; BMI 25.8
--- NOTE | 2023-12-04 12:28 | A.OFFVIS_ITS ---
Vital Signs 12/04/23 12:28 Height 5 ft 7 in Weight 164 lb 7.437 oz BMI 25.8 BP 118/76 Blood Pressure Location Rt brachial Position Sitting Pulse 68 Pulse Source Pulse Oximeter Intake Visit Reasons: 6 mth f/up Office Automation Clerk Required: No Accompanied by: Spouse Allergies No Known Allergies [No Known Allergies*] Allergy (Verified 09/17/23 14:49) Medication List - Last Reconciled 12/04/23 by Manoj Chavez MD aspirin (Adult Aspirin Regimen) 81 mg PO DAILY atorvastatin 20 mg PO BEDTIME coenzyme Q10 (Co Q-10) 10 mg PO DAILY gltyhf-vmdfunyj-xquuznx 6,000-19,000 -30,000 unit (Creon) 2 caps PO BID metoprolol succinate ER 50 mg PO DAILY multivitamin 1 tab PO DAILY omeprazole 20 mg PO DAILY HPI Comments Details: Waqar returns for follow-up. Originally seen in consultation regarding coronary disease. In the past, has seen Dr. Rios. Has a history of coronary artery disease and underwent coronary artery bypass surgery in 2002. Overall, no specific cardiac complaints. Apparently walks pretty much all day and does not have any symptoms like chest pain. He even walks up inclines and states he feels fine. [facility] Medical History Neuropathy COVID DJD (degenerative joint disease) Ampullary adenoma Bleeding hemorrhoids Diverticulosis Atherosclerotic cardiovascular disease HTN (hypertension) Elevated cholesterol CAD (coronary artery disease) Surgical History H/O Whipple procedure S/P CABG x 1 History of incisional hernia repair Hx of right inguinal hernia repair Hx of endoscopic retrograde cholangiopancreatography H/O colonoscopy History of Whipple procedure Hx of coronary artery bypass graft Family History Mother No problems noted. Brother Heart problem Father Heart problem Social History Alcohol intake: never Patient Tobacco Use Status: Never used Tobacco Review of Systems Const Denies chills, Denies fatigue, Denies fever(s), Denies weight gain and Denies weight loss ENT Denies dizziness Card Denies chest pain, Denies leg edema, Denies lightheadedness, Denies palpitations, Denies dyspnea on exertion, Denies orthopnea and Denies other Resp Denies cough and Denies dyspnea on exertion GI Denies hematochezia and Denies change in stool character Musc Denies abnormal gait, Denies muscle weakness, Denies numbness, Denies radiating pain into limb and Denies tingling Neuro Denies abnormal gait, Denies dizziness, Denies numbness and Denies tingling Endo Denies fatigue and Denies palpitations Physical Exam Vital Signs: Last Vital Signs Pulse 68 12/04/23 12:28 BP 118/76 12/04/23 12:28 BMI result Body Mass Index 25.8 Const General: comfortable and no acute distress Orientation/consciousness: patient oriented x3 HEENT Other: Unremarkable Head: Yes normal to inspection Neck Neck: Yes normal visual inspection Chest Chest palpation & inspection: normal inspection of the chest Resp Auscultation: clear to auscultation bilaterally Cardio Palpation: normal PMI Heart sounds: S1 normal heart sound present, S2 normal heart sound present, no gallops, no murmurs and no rubs GI Palpation (GI): Soft to palpation Back/Spine/Pelvis Other: unremarkable Skin General skin exam: no rashes or lesions noted Neuro General: patient oriented x3 Extrem General: Yes normal to inspection Psych Mental Status: mental status grossly normal Assessment & Plan Assessment & Plan (1) Atherosclerotic cardiovascular disease: Code(s): I25.10 - Atherosclerotic heart disease of [place] coronary artery without angina pectoris Category: Medical (2) Status post aorto-coronary artery bypass graft: Code(s): Z95.1 - Presence of aortocoronary bypass graft Category: Medical Plan Cardiac studies reviewed. Echocardiogram with LVEF of 40-45%. Inferior, inferoseptal, inferolateral akinesis. No significant valvular findings. Myocardial perfusion imaging study shows mixed ischemia/infarction pattern in the basal to mid inferior wall as well as adjacent inferoseptal/inferolateral goodrich. Overall, abnormal testing as above, remote CABG history, but clinically absolutely no symptoms. Findings discussed with patient and significant other. We can keep him on aspirin, beta-blockers and statins. If any concerns like angina, he will need a diagnostic catheterization. We also discussed about that today. He understands very well. He will contact us with any specific concerns. Otherwise, follow-up in 6 months. Total time spent including review of data, counseling, documentation, coordination care-32 minutes. Coding Level of Care Code Est Pt Level 4 (02147) Diagnoses Atherosclerotic cardiovascular disease I25.10 Status post aorto-coronary artery bypass graft Z95.1
== END 2023-12-04 12:43 | disposition home or self-care (01) ==
PROVIDERS: PCP Family Medicine; Visit Provider Internal Medicine
DX: I25.10 Atherosclerotic heart disease of native coronary artery without angina pectoris (principal); Z95.1 Presence of aortocoronary bypass graft
CPT/HCPCS: 99214

== ENCOUNTER → 2023-12-04 12:26 | Outpatient (BNVA) | payer MEDICARE, SELFPAY | PROVIDERS: PCP Family Medicine; Visit Provider Internal Medicine | DX: I25.10 Atherosclerotic heart disease of native coronary artery without angina pectoris (principal); Z95.1 Presence of aortocoronary bypass graft | CPT/HCPCS: 99212 ==

== ENCOUNTER 2023-12-28 09:58 | Outpatient (REF) | payer MEDICARE, MEDICAID, SELFPAY ==
--- NOTE | ~2023-12-28 | XR_ITS ---
EXAMINATION: XR CHEST 2 VIEWS CLINICAL INFORMATION: HTN, ATELECTASIS COMPARISON: Prior chest x-ray September 20, 2016 TECHNIQUE: XR CHEST 2 VIEWS, 2 Views Lungs and Clair: Both lungs are clear. Pleura: Normal. Costophrenic angles are sharp. No pneumothorax. Heart: The heart is normal in size. Mediastinum: Sternotomy wires are stable.. Bones: Skeletal structures included are normal for patient's age. XR/XR chest 2V IMPRESSION: No radiographic evidence of acute cardiopulmonary disease. Electronically signed by: Alvarez Reyes MD 12/28/2023 04:14 PM EDT
[2023-12-28 11:39] LABS: Anion Gap 9 (12-20); Blood Urea Nitrogen 23 mg/dL (9-16); Carbon Dioxide 32 mmol/L (22-29); Chloride 105 mmol/L (96-108); Estimated Glomerular Filt Rate > 60; Potassium 4.3 mmol/L (3.3-5.1); Sodium 142 mmol/L (135-145)
== END 2023-12-28 09:59 | disposition home or self-care (01) ==
LOC: HO.LAB 09:58
PROVIDERS: Visit Provider Family Medicine
DX: I10 Essential (primary) hypertension (principal)
CPT/HCPCS: 36415; 71046; 80051; 82565; 84520

== ENCOUNTER 2024-05-19 12:35 | Outpatient (AMB) | payer MEDICARE, MEDICAID, SELFPAY ==
--- NOTE | 2024-05-19 12:38 | A.OFFVIS_ITS ---
Vital Signs 05/19/24 12:39 Height 5 ft 7 in Weight 163 lb BMI 25.5 BP 128/62 Blood Pressure Location Lt brachial Position Sitting Pulse 56 Pulse Source Monitor Intake Visit Reasons: 6 mth f/up Administrative Personal Assistant Required: Yes Administrative Personal Assistant Services: Administrative Personal Assistant Offered & Declined Allergies No Known Allergies [No Known Allergies*] Allergy (Verified 09/17/23 14:49) Medication List - Last Reconciled 05/19/24 by Manoj Chavez MD aspirin (Adult Aspirin Regimen) 81 mg PO DAILY atorvastatin 20 mg PO BEDTIME lhkkip-lfhpyosl-tyvswtl 6,000-19,000 -30,000 unit (Creon) 2 caps PO BID metoprolol succinate ER 50 mg PO DAILY multivitamin 1 tab PO DAILY omeprazole 20 mg PO DAILY HPI Comments Details: Waqar returns for follow-up regarding coronary artery disease. In the past, has seen Dr. Rios. History of coronary disease and bypass surgery in 2002. Overall, he states he feels good. No anginal-type symptoms. He states he has had Whipple procedure in the past for pancreas issues and he gets pain in the epigastrium; he states he can clearly differentiate cardiac pains from pancreatic pains. Repeatedly asked and he states that the pain see gets are only from pancreas especially if he misses some medications like pancreatic enzymes. [facility] Medical History Neuropathy COVID DJD (degenerative joint disease) Ampullary adenoma Bleeding hemorrhoids Diverticulosis Atherosclerotic cardiovascular disease HTN (hypertension) Elevated cholesterol CAD (coronary artery disease) Surgical History H/O Whipple procedure S/P CABG x 1 History of incisional hernia repair Hx of right inguinal hernia repair Hx of endoscopic retrograde cholangiopancreatography H/O colonoscopy History of Whipple procedure Hx of coronary artery bypass graft Family History Mother No problems noted. Brother Heart problem Father Heart problem Social History Alcohol intake: never Patient Tobacco Use Status: Never used Tobacco Review of Systems Const Denies weakness ENT Denies dizziness Card Denies chest pain, Denies chest pain with activity, Denies syncope, Denies rapid heart rate, Denies pedal edema, Denies edema, Denies leg edema, Denies lightheadedness, Denies palpitations, Denies dyspnea, Denies dyspnea on exertion and Denies orthopnea Resp Denies cough, Denies dyspnea and Denies dyspnea on exertion GI Denies hematochezia and Denies change in stool character Musc Denies abnormal gait, Denies muscle cramps, Denies muscle weakness, Denies numbness, Denies radiating pain into limb and Denies tingling Neuro Denies abnormal gait, Denies dizziness, Denies syncope, Denies numbness, Denies tingling and Denies weakness Endo Denies palpitations Physical Exam Vital Signs: Last Vital Signs Pulse 56 05/19/24 12:39 BP 128/62 05/19/24 12:39 BMI result Body Mass Index 25.5 Const General: comfortable and no acute distress Orientation/consciousness: patient oriented x3 HEENT Other: Unremarkable Head: Yes normal to inspection Neck Neck: Yes normal visual inspection Chest Chest palpation & inspection: normal inspection of the chest Resp Auscultation: clear to auscultation bilaterally Cardio Palpation: normal PMI Heart sounds: S1 normal heart sound present, S2 normal heart sound present, no gallops, no murmurs and no rubs GI Palpation (GI): Soft to palpation Back/Spine/Pelvis Other: unremarkable Skin General skin exam: no rashes or lesions noted Neuro General: patient oriented x3 Extrem General: Yes normal to inspection Psych Mental Status: mental status grossly normal Office Procedures EKG Details: EKG with sinus bradycardia at 56/Min; cannot exclude old inferior infarct; [place] [id number], Complete Assessment & Plan Assessment & Plan (1) Atherosclerotic cardiovascular disease: Code(s): I25.10 - Atherosclerotic heart disease of [place] coronary artery without angina pectoris Category: Medical (2) Status post aorto-coronary artery bypass graft: Code(s): Z95.1 - Presence of aortocoronary bypass graft Category: Medical Plan Cardiac studies reviewed. Echocardiogram 2023 with LVEF of 40-45%. Inferior, inferoseptal, inferolateral akinesis. No significant valvular findings. Myocardial perfusion imaging study 2023 shows mixed ischemia/infarction pattern in the basal to mid inferior wall as well as adjacent inferoseptal/inferolateral goodrich. In the exercise component, he reached 8.8 METS exercise capacity and 95% of max predicted heart rate. Overall, abnormal testing as above, remote CABG history, but clinically absolutely no symptoms. Treat for stable coronary disease. Continue aspirin, beta-blockers, statins. In the future, if any clear concerns like angina, we will need a diagnostic catheterization. We discussed about this today and he understands. Discussed with significant other. Follow-up in 6 months. Coding Level of Care Code Est Pt Level 4 (66155) Complex EM visit Add On G2211 Diagnoses Atherosclerotic cardiovascular disease I25.10 Status post aorto-coronary artery bypass graft Z95.1 CPT Codes EKG - CPT: 43096-Isnhgzvtzdeybllds, Complete ([id number])
[2024-05-19 12:39] VITALS: BP 128/62; PULSE 56; BMI 25.5
--- OUTSIDE RECORDS SUMMARY | 2024-05-19 14:42 | XMS_ITS ---
Author Organization [facility] Address [address] [place] [id number] Care Team Providers Care Textiles Sales Representative Name Role Phone Philip Banks MD Primary Care Provider Unavailab Ladarius Helms Unavailable [phone] ruben sterling Unavailable Unavailable REASON FOR VISIT Patient presents today for a upper abd pain MEDICATIONS Medication SIG (Take, Route, Frequency, Duration) Notes Start Date End Date Status Atorvastatin Calcium 10 MG 1 tablet Oral ly Once a day for 30 day(s) Active Multivitamin Adults - as directed Orally as directed Active Co Q 10 10 MG 1 capsule with a augustus l Orally Once a day for 30 day(s) Active Omeprazole 20 MG TAKE 1 CAPSULE BY [facility] EVERY DAY AT BEDTIME DIRECTED Oral for 90 Active Metoprolol Succinate ER 50 MG TAKE 1 TABLET BY MOUTH EVERY DAY Oral for 90 Active Aspir-81 81 MG 1 tablet Orally Once a day Active Creon 6000 UNIT as directed Orally t a day Active Carafate 1 GM 1 tablet Orally Tw day--take 2 hours after your morning meal and two hours after your evening meal for 30 days 12/07/2022 Active SOCIAL HISTORY Sex Assigned At : Social History Observation Description Sex Assigned At Unknown Alcohol Screen Question Answer Notes Did you have a drink containing alcohol in the p ast year? No Points 0 Interpretation Negative PROBLEMS Problem Type ICD Code Onset Dates Problem Status W/U Status Risk SNOMED Code Notes Problem Gastroesophageal reflux disease, unspecified whether esophagitis present (K21.9) Active confirmed 904447239 Problem Abdominal pain, generalized (R10.84) Active confirmed 434470681 VITAL SIGNS Temperature 97.1 degrees Fahrenheit 12/08/19 23 Blood pressure systolic 000 mm Hg 12/08/19 23 Blood pressure diastolic 00 mm Hg 023 Height 67.50 in 12/07/2022 Weight 168 lbs 12/07/2022 BMI 25.92 kg/m2 12/07/2022 Encounters Encounter Location Date Provider Diagnosis [facility] [address] [place] [address] 12/07/2022 Ladarius Oneal Encounter for screen ing for malignant neoplasm of colon Z12.11 ; Abdominal pain, generalized R10.84 ; Ampullary adenoma D13.5 and Gastroesophageal reflux disease, unspecified whether esophagitis present K21.9 ASSESSMENTS Encounter Date Diagnosis Assessment Notes Treatment Notes Treatment Clinical Notes 12/07/2022 Encounter for screen ing for malignant neoplasm of colon (ICD-10 - Z12.11) Stop aspirin for three days before the procedures 12/07/2022 Abdominal pain, generalized (ICD-10 - R10.84) 12/07/2022 Ampullary adenoma (ICD-10 - D13.5) 12/07/2022 Gastroesophageal ref lux disease, unspecified whether esophagitis present (ICD-10 - K21.9) PLAN OF TREATMENT Medication Medication Name Sig Start Date Stop Date Notes Carafate 1 GM 1 tablet Orally Twic e day--take 2 hours after your morning meal and two hours after your evening meal for 30 days 12/07/2022 Treatment Notes Assessment Notes Encounter for screening for malignant neoplasm of colon Stop aspirin for three days before the procedures Future Test Test Name Order Date UPPER GI ENDOSCOPY 12/07/2022 COLONOSCOPY 12/07/2022 Next Appt Details Follow Up: prn, Reason: Progress Notes * Examination Category Sub-Category Detail Notes General Examination GENERAL APPEARANCE: pleasant , well nourished, well developed, in no acute distress EYES: sclera non-icteric NECK/THYROID: no cervical lymphade nopathy, neck supple HEART: S1, S2 normal LUNGS: clear to auscultatio n bilaterally ABDOMEN: normal bowel sounds, no guarding or rigidity, no hepatosplenomegaly, no masses palpable, soft, nontender, nondistended. NEUROLOGIC: alert and oriented SKIN: nonjaundiced, no spi radha angiomata. EXTREMITIES: no edema ORAL CAVITY: mucosa moist
--- OUTSIDE RECORDS SUMMARY | 2024-05-19 14:42 | XMS_ITS | Patient Health Record ---
Author Organization [facility] Address [address] [place] [address] Care Team Providers Care Supervisor [place] Name Role Phone Philip Banks MD Primary Care Provider Unavailab Ladarius Helms Unavailable [phone] ruben sterling Unavailable Unavailable REASON FOR REFERRAL No Information MEDICATIONS Medication SIG (Take, Route, Frequency, Duration) Notes Start Date End Date Status Aspir-81 81 MG 1 tablet Orally Once a day Active Creon 6000 UNIT as directed Orally t wice a day Active Atorvastatin Calcium 10 MG 1 tablet Oral ly Once a day for 30 day(s) Active Multivitamin Adults - as directed Orally as directed Active Sucralfate 1 GM TAKE 1 TABLET TWICE A DAY--TAKE 2 HOURS AFTER YOUR MORNING MEAL AND 2 HOURS AFTER YOUR EVENING MEAL for 90 Active Co Q 10 10 MG 1 capsule with a augustus l Orally Once a day for 30 day(s) Active Omeprazole 20 MG TAKE 1 CAPSULE BY [facility] EVERY DAY AT BEDTIME DIRECTED Oral for 90 Active Metoprolol Succinate ER 50 MG TAKE 1 TABLET BY MOUTH EVERY DAY Oral for 90 Active SOCIAL HISTORY Sex Assigned At : Social History Observation Description Sex Assigned At Unknown Alcohol Screen Question Answer Notes Did you have a drink containing alcohol in the p ast year? No Points 0 Interpretation Negative PROBLEMS Problem Type ICD Code Onset Dates Problem Status W/U Status Risk SNOMED Code Notes Problem Encounter for screening for malignant neoplasm of colon (Z12.11) Active confirmed 249594663 Problem Diverticulosis of large intestine without perforation or abscess without bleeding (K57.30) Active confirmed Diverticul ar disease of colon (414568129) Problem Gastritis, chronic (K29.50) Active confirmed Chronic gastritis (1967977) Problem Ampullary adenoma (D13.5) Active confirmed 335923644 Problem Abdominal pain, generalized (R10.84) Active confirmed 332956256 Problem 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) Active confirmed 533943237 Problem Gastroesophageal reflux disease, unspecified whether esophagitis present (K21.9) Active confirmed 700880855 PLAN OF TREATMENT Future Test Test Name Order Date COLONOSCOPY 02/07/2011 COLONOSCOPY 05/21/2018 UPPER GI ENDOSCOPY 12/07/2022 COLONOSCOPY 12/07/2022 Insurance Providers Payer Name Payer Address Payer Phone Subscriber Number Group Number Insured Name Patient Relationship to Insured Coverage Start Date Coverage End Date MEDICARE OF [place] [address] [place] [address] [id number] WAYNE GRAHAM Self - patient is the insured MEDICAL (GENERAL) HISTORY Medical History History ICD Code Hypertension Hyperlipidemia CAD-CABG as below Denies ID,DM,CVA,Lung disease,renal dise ase Tubulovillous adenoma of major papilla a s below Screening colonoscopy in 2011 was neg. 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 Oglesby at [facility]. He describes a wound infection requiring a wound-vac Incisional hernia 12/2016-Dr. Oglesby x2
--- OUTSIDE RECORDS SUMMARY | 2024-05-19 14:42 | XMS_ITS ---
Author Organization [facility] Address [address] [place] [address] Care Team Providers Care Toolroom Helper Name Role Phone Philip Banks MD Primary Care Provider Unavailab Ladarius Helms Unavailable [phone] oyula, ignatiuis Unavailable Unavailable REASON FOR VISIT abdominal pain, gerd,screening PROBLEMS Problem Type ICD Code Onset Dates Problem Status W/U Status Risk SNOMED Code Notes Problem Diverticulosis of large intestine without perforation or abscess without bleeding (K57.30) Active confirmed Diverticul ar disease of colon (256861349) Problem Gastritis, chronic (K29.50) Active confirmed Chronic gastritis (9343250) Encounters Encounter Location Date Provider Diagnosis [facility] [address] [place] [id number] 03/07/2023 Ladarius Oneal Encounter for scre ening colonoscopy Z12.11 ; Diverticulosis of large intestine without perforation or abscess without bleeding K57.30 ; Internal hemorrhoids K64.8 ; Gastritis, chronic K29.50 ; Hiatal hernia K44.9 and Abdominal pain R10.9 ASSESSMENTS Encounter Date Diagnosis Assessment Notes Treatment Notes Treatment Clinical Notes 03/07/2023 Encounter for screening colonoscopy (ICD-10 - Z12.11) 03/07/2023 Diverticulosis of large intestine without perforation or abscess without bleeding (ICD-10 - K57.30) 03/07/2023 Internal hemorrhoids (ICD-10 - K64.8) 03/07/2023 Gastritis, chronic (ICD-10 - K29.50) 03/07/2023 Hiatal hernia (ICD-1 0 - K44.9) 03/07/2023 Abdominal pain (ICD-10 - R10.9) PLAN OF TREATMENT No Information
== END 2024-05-19 12:57 | disposition home or self-care (01) ==
PROVIDERS: PCP Family Medicine; Visit Provider Internal Medicine
DX: I25.10 Atherosclerotic heart disease of native coronary artery without angina pectoris (principal); Z95.1 Presence of aortocoronary bypass graft
CPT/HCPCS: 93010; 99214; G2211

== ENCOUNTER → 2024-05-19 12:35 | Outpatient (BNVA) | payer MEDICARE, SELFPAY | PROVIDERS: PCP Family Medicine; Visit Provider Internal Medicine | DX: I25.10 Atherosclerotic heart disease of native coronary artery without angina pectoris (principal); I10 Essential (primary) hypertension; Z95.1 Presence of aortocoronary bypass graft | CPT/HCPCS: 93005; 99212 ==

== ENCOUNTER 2024-06-05 10:26 | Outpatient (REF) | payer MEDICARE, MEDICAID, SELFPAY ==
[2024-06-05 12:06] LABS: Alanine Aminotransferase 34 U/L (0-40); Anion Gap 10 (12-20); Aspartate Amino Transferase 34 U/L (5-37); Blood Urea Nitrogen 25 mg/dL (9-16); Carbon Dioxide 30 mmol/L (22-29); Chloride 107 mmol/L (96-108); Cholesterol 123 mg/dL (<200); Estimated Glomerular Filt Rate > 60; HDL Cholesterol 35 mg/dL (>40); LDL Cholesterol Calculated 62 mg/dL (<100); Potassium 4.4 mmol/L (3.3-5.1); Sodium 143 mmol/L (135-145); Triglycerides 134 mg/dL (<150)
== END 2024-06-05 10:27 | disposition home or self-care (01) ==
LOC: HO.LAB 10:26
PROVIDERS: PCP Family Medicine; Visit Provider Family Medicine
DX: I10 Essential (primary) hypertension (principal); E78.00 Pure hypercholesterolemia, unspecified
CPT/HCPCS: 36415; 80051; 80061; 82550; 82565; 84450; 84460; 84520

== ENCOUNTER 2024-06-13 15:25 | Outpatient (AMB) | payer MEDICARE, MEDICAID, SELFPAY ==
[2024-06-13 15:59] VITALS: BP 126/80; PULSE 64; O2SAT 96; BMI 26.4
--- NOTE | 2024-06-13 15:59 | A.OFFPC_ITS ---
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: No Accompanied by: Self / Same As Patient Allergies No Known Allergies [No Known Allergies*] Allergy (Verified 06/13/24 16:48) Medication List - Last Reconciled 06/13/24 by Ronan Lomas MD aspirin (Adult Aspirin Regimen) 81 mg PO DAILY atorvastatin 20 mg PO BEDTIME klobll-ctyeahnp-cchppsm 6,000-19,000 -30,000 unit (Creon) 2 caps PO BID metoprolol succinate ER 50 mg PO DAILY multivitamin 1 tab PO DAILY omeprazole 20 mg PO DAILY Tobacco use date assessed: 06/13/24 Fall risk assessment: No Falls in past year Last assessed Fall Risk: 06/13/24 Dental Screening Dental Screen Date: 06/13/24 Did you have a dental visit in the last 12 months?: Yes Did you have a dental problem in the last 6 months where you did not have access to dental care?: No Was dental information given to patient?: Patient has dentist HPI establish care HPI Details Patient comes in today to establish care - he is transferring over from Dr. Philip Banks Patient states that he currently feels okay except for increased pain over both shoulders, which he states have been bothering him for a few weeks now Notes that his shoulder pain is slightly worse on the left side He denies any recent injury or trauma to his shoulders States that he has been taking some OTC Ibuprofen lately but they only help slightly and temporarily He denies any headaches or dizziness Denies any chest pains, no shortness of breath No nausea/vomiting, no abdominal pain No change in bowel habits noted He had some follow up labs done last week - to discuss his results [facility] Medical History (Updated 06/14/24 @ 02:47 by Ronan Lomas MD) Pure hypercholesterolemia Neuropathy COVID DJD (degenerative joint disease) Ampullary adenoma Bleeding hemorrhoids Diverticulosis Atherosclerotic cardiovascular disease HTN (hypertension) Elevated cholesterol CAD (coronary artery disease) Surgical History (Updated 06/14/24 @ 02:50 by Ronan Lomas MD) H/O Whipple procedure S/P CABG x 1 History of incisional hernia repair Hx of right inguinal hernia repair Hx of endoscopic retrograde cholangiopancreatography H/O colonoscopy History of Whipple procedure Hx of coronary artery bypass graft Family History Mother No problems noted. Brother Heart problem Father Heart problem Social History Housing: House Alcohol intake: never Patient Tobacco Use Status: Never used Tobacco e-Cigarette/Vaping Use: Never Used Second Hand Smoke Exposure: No service: No Current occupational status: unemployed Current occupational exposures/hazards: No Cognitive needs: No Hearing needs: No Vision needs: No Questionnaire PHQ-9 Over the last 2 weeks, how often have you been bothered by any of the following problems? 1. Little interest or pleasure in doing things: not at all 2. Feeling down, depressed, or hopeless: not at all 3. Trouble falling or staying asleep, or sleeping too much: not at all 4. Feeling tired or having little energy: not at all 5. Poor appetite or overeating: not at all 6. Feeling bad about yourself - or that you are a failure or have let yourself or your family down: not at all 7. Trouble concentrating on things, such as reading the newspaper or watching television: not at all 8. Moving or speaking so slowly that other people could have noticed. Or the opposite - being so fidgety or restless that you have been moving around a lot more than usual: not at all 9. Thoughts that you would be better off or of hurting yourself in some way: not at all Total score: 0 Depression Screening Interpretation: Negative Depression Screening Done: Yes 45079 - PHQ-9 Billing: Yes Source: Developed by Drs. Ladarius Concepcion, Karen Heredia, Shelton Diaz and colleagues, with an educational fanny from [employer]. Thrive Questionnaire Date Thrive assessed: 06/13/24 I am a: Patient What is your living situation today?: I have a steady place to live Within the past 12 months, did the food you bought not last and you didn't have the money to get more?: I choose not to answer this question Within the past 12 months, did you worry whether your food would run out before you got money to buy more?: I choose not to answer this question Do you have trouble paying for medicines?: No Do you have trouble getting transportation to medical appointments?: No Do you have trouble paying your heating and electricity bill?: Yes Do you have trouble taking care of your child, family member or friend?: No Do you have trouble with day-to-day activities such as bathing, preparing meals, shopping, managing finances, etc.?: No Are you currently unemployed and looking for a job?: No Are you interested in more education?: No Please select the resources that you would like help with: Job search/training and None Currently or been in a relationship where the following occur: No concerns repor bharathi THRIVE Score: 1 AUDIT C Alcohol Use Questionnaire (AUDIT-C) 1. How often do you have a drink containing alcohol?: Never 3. How often do you have six or more drinks on one occasion?: Never Total Score: 0 Score Reviewed/Action Taken: Yes KATHLEEN-7 AMB Questionnaire KATHLEEN-7 Date KATHLEEN - 7 assessed: 06/13/24 Feeling nervous, anxious, or on edge: 0 = Not at all Not being able to stop or control worryin = Not at all Worrying too much about different things: 0 = Not at all Trouble relaxin = Not at all Being so restless that it is hard to sit still: 0 = Not at all Becoming easily annoyed or irritable: 0 = Not at all Feeling afraid as if something awful might happen: 0 = Not at all Total KATHLEEN-7 score (0-4 normal; 5-9 mild; 10-14 moderate; 15-21 severe): 0 Source: Developed by Drs. Ladarius Concepcion, Karen Heredia, Shelton Diaz and colleagues, with an educational fanny from [employer]. Review of Systems Const Denies chills, Denies fatigue, Denies fever(s) and Denies headache(s) ENT Denies dysphagia, Denies dizziness, Denies otalgia, Denies headache(s), Denies neck pain, Denies odynophagia and Denies sore throat Card Denies chest pain, Denies palpitations and Denies dyspnea Resp Denies chest congestion, Denies cough and Denies dyspnea GI Denies abdominal pain, Denies constipation, Denies dysphagia, Denies heartburn, Denies diarrhea, Denies nausea, Denies odynophagia and Denies vomiting Denies difficulty urinating, Denies dysuria, Denies nocturia and Denies urinary frequency Musc Denies back pain, Reports arthralgias (over both shoulders, L > R) and Denies neck pain Skin/Breast Denies rash Neuro Denies dizziness and Denies headache(s) Endo Denies fatigue and Denies palpitations Physical exam (Primary Care) Vital Signs: Last Vital Signs Pulse 64 06/13/24 15:59 BP 126/80 06/13/24 15:59 Pulse Ox 96 06/13/24 15:59 Oxygen Delivery Method Room Air 06/13/24 15:59 BMI result Body Mass Index 26.4 Tobacco/Smoking Status: Tobacco use Status Tobacco use date assessed 06/13/24 06/13/24 16:00 Patient Tobacco Use Status Never used Tobacco 06/13/24 16:00 e-Cigarette/Vaping Use Never Used 06/13/24 16:07 PHQ-9: PHQ-9 Score PHQ-9: Total score 0 06/13/24 16:54 Depression Screening Interpretation: Negative Thrive Assessment: Date of Thrive Assessment Date Thrive assessed 06/13/24 06/13/24 16:00 Currently or been in a relationship where the following occur: No concerns reported Const General: no acute distress and alert HENMT Ears: TM's normal bilaterally and EAC's normal Throat: Yes posterior oropharynx normal and Yes tonsils normal (no TP congestion) Neck Neck: Yes no lymphadenopathy and Yes supple Resp Auscultation: clear to auscultation bilaterally, no rales and no wheezes Cardio Rate: regular rate Rhythm: regular rhythm Heart sounds: no murmurs GI Palpation (GI): Soft to palpation, nontender and No hepatosplenomegaly present Skin General skin exam: no rashes or lesions noted Extrem General: Yes no clubbing, cyanosis or edema Results Reviewed Results Reviewed: Laboratory Tests 06/05/24 10:52 Sodium 143 Potassium 4.4 Creatinine 0.71 Estimated GFR > 60 AST 34 ALT 34 Triglycerides 134 Cholesterol 123 LDL Cholesterol, Calc 62 HDL Cholesterol 35 L Coding Level of Care Code New Pt Level 4 (96123) Diagnoses Atherosclerotic cardiovascular disease I25.10 Pure hypercholesterolemia E78.00 Bilateral shoulder pain, unspecified chronicity M25.511; M25.512 Chronicity: unspecified H/O Whipple procedure Z90.410; Z90.49 Additional Codes PHQ-9 - 29678 - PHQ-9 Billing: Yes ([id number]) Assessment & Plan Assessment & Plan (1) Atherosclerotic cardiovascular disease: Code(s): I25.10 - Atherosclerotic heart disease of [place] coronary artery without angina pectoris Category: Medical Plan: S/P CABG back in 2002 Echocardiogram done last year (06/2023) revealed normal left ventricular cavity size and normal left ventricular wall thickness. The left ventricular systolic function is mildly decreased, with the visually estimated ejection fraction between 40-45%. The inferolateral wall, the basal inferior, mid inferior, and basal inferoseptal segments are all akinetic. The right ventricular cavity is normal in size and there is mildly decreased right ventricular systolic function Patient is asymptomatic from a cardiovascular standpoint Continue Aspirin 81 mg QD and Metoprolol ER 50 mg QD Follow up with cardiology as scheduled (2) Pure hypercholesterolemia: Code(s): E78.00 - Pure hypercholesterolemia, unspecified Category: Medical Plan: Results of his labs done last week reviewed and discussed with patient Reinforced low cholesterol diet Continue Atorvastatin 20 mg QD Will recheck his labs and fasting lipids in 4 months for follow up (3) Bilateral shoulder pain: Code(s): M25.511 - Pain in right shoulder; M25.512 - Pain in left shoulder Category: Medical Qualifiers: Chronicity: unspecified Qualified Code(s): M25.511 - Pain in right shoulder; M25.512 - Pain in left shoulder Plan: Will send patient for x-rays of both shoulders for further evaluation Have advised him that with his cardiac and surgical history, taking NSAIDs in general (including Ibuprofen) is not recommended Will try him instead on Celecoxib 200 mg but have advised him to take this only on an as-needed basis and always with food If his x-rays reveal (+) significant findings and having to take some Rx for pain for a longer period of time is anticipated, will then need to reassess his Rx (4) H/O Whipple procedure: Comment: 2017 - likely due to pancreatic cancer or chronic pancreatitis Code(s): Z90.410 - Acquired total absence of pancreas; Z90.49 - Acquired absence of other specified parts of digestive tract Category: Surgical Plan: Continue Creon 2 capsules BID and Omeprazole 20 mg QD Follow up with GI as scheduled Plan Follow up in 6 months Orders: Orders XR shoulder RT min 2V 06/13/24 M25.511 - Pain in right shoulder Complete Blood Count Auto Diff 4 Months D64.9 - Anemia, unspecified Lipid Panel 4 Months E78.00 - Pure hypercholesterolemia, unspecified Comprehensive [place]. Panel Fast 4 Months E78.00 - Pure hypercholesterolemia, unspecified UA CC w/rflx Micro + Cult 4 Months R30.0 - Dysuria XR shoulder LT min 2V 06/13/24 M25.512 - Pain in left shoulder TSH reflex Free T4 4 Months E78.00 - Pure hypercholesterolemia, unspecified Vitamin D 25-OH Total 4 Months E55.9 - Vitamin D deficiency, unspecified Medications: New celecoxib Take with food only as needed for severe pain 200 mg PO DAILY 30 days PRN 30 caps 0RF severe pain
== END 2024-06-13 17:06 | disposition home or self-care (01) ==
LOC: HO.HMCH 15:26
PROVIDERS: PCP Family Medicine; Visit Provider Internal Medicine
DX: I25.10 Atherosclerotic heart disease of native coronary artery without angina pectoris (principal); E78.00 Pure hypercholesterolemia, unspecified; M25.511 Pain in right shoulder; M25.512 Pain in left shoulder; Z90.410 Acquired total absence of pancreas; Z90.49 Acquired absence of other specified parts of digestive tract

== ENCOUNTER → 2024-06-13 15:25 | Outpatient (BNVA) | payer MEDICARE, MEDICAID, SELFPAY | PROVIDERS: PCP Family Medicine; Visit Provider Internal Medicine | DX: I25.10 Atherosclerotic heart disease of native coronary artery without angina pectoris (principal); E78.00 Pure hypercholesterolemia, unspecified; M25.511 Pain in right shoulder; M25.512 Pain in left shoulder; Z90.410 Acquired total absence of pancreas; Z90.49 Acquired absence of other specified parts of digestive tract | CPT/HCPCS: 96127; 99202 ==

== ENCOUNTER 2024-07-02 08:02 | Outpatient (REF) | payer MEDICARE, MEDICAID, SELFPAY ==
--- NOTE | ~2024-07-02 | XR_ITS ---
CLINICAL HISTORY: M25.511 - Pain in right shoulder 3 views left shoulder Comparison: None Findings: No fractures or dislocations No significant arthritic change. A 3 mm soft tissue calcification is located adjacent to the humerus deeper tuberosity supraspinatus tendon insertion site No radiopaque foreign body Normal visualized left chest Impression: Supraspinatus calcific tendinitis. Joint distances are normal. No acute findings. 3 views right shoulder Comparison: none. Findings: No fractures or dislocations. No significant arthritic change. No radiopaque foreign body. Normal visualized right chest. Impression: Unremarkable right shoulder. No acute skeletal abnormality. This document has been electronically signed by: Brian Sommer MD on 07/03/2024 13:08:28
--- OUTSIDE RECORDS SUMMARY | 2024-07-02 08:08 | XMS_ITS ---
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 Role Phone Philip Banks MD Primary Care Provider Unavailab Ladarius Helms Unavailable [phone] oyula, ignatiuis Unavailable Unavailable REASON FOR VISIT abdominal pain, gerd,screening Problems Problem Type SNOMED Code ICD Code Onset Dates Problem Status W/U Status Risk Notes Problem Diverticular disease of colon (602198532) Diverticulosis of large intestine without perforation or abscess without bleeding (K57.30) Active confirmed Problem Chronic gastritis (6337411) Gastritis, chronic (K29.50) Active confirmed Encounters Encounter Location Date Provider Diagnosis [facility] Outpatient [address] [place] [address] [id number] 03/07/2023 Ladarius Oneal Encounter for scre ening colonoscopy Z12.11 ; Diverticulosis of large intestine without perforation or abscess without bleeding K57.30 ; Internal hemorrhoids K64.8 ; Gastritis, chronic K29.50 ; Hiatal hernia K44.9 and Abdominal pain R10.9 Assessments Encounter Date Diagnosis (ICD Code) Assessment Notes Treatment Notes Treatment Clinical Notes Section Notes 03/07/2023 Encounter for screening colonoscopy (ICD-10 - Z12.11) 03/07/2023 Diverticulosis of large intestine without perforation or abscess without bleeding (ICD-10 - K57.30) 03/07/2023 Internal hemorrhoids (ICD-10 - K64.8) 03/07/2023 Gastritis, chronic (ICD-10 - K29.50) 03/07/2023 Hiatal hernia (ICD-10 - K44.9) 03/07/2023 Abdominal pain (ICD-10 - R10.9) Plan Of Treatment No Information Progress Notes * WAYNE GRAHAMDOB:1955 (68 yo M)Acc No.[id number]:03/07/2023 EGD and COL/MAC Patient:?WAYNE GRAHAM Provider:?Ladarius Oneal MD :1955???Age:67 Y???Sex:Male Ricardo e:03/07/2023 Address:[address] [place], [place] [id number] Pcp:Philip Banks MD Subjective: * Chief Complaints: * ???1. Abdominal pain, gerd,s creening. * Medical History:? Objective: * Vitals:? Assessment: * Assessment: 1.?Encounter for screening c olonoscopy - Z12.11 (Primary)???2.?Diverticulosis of large intestine without perforation or abscess without bleeding - K57.30???3.?Internal hemorrhoids - K64.8???4.?Gastritis, chronic - K29.50?? 5.?Hiatal hernia - K44.9???6.?Abdominal pain - R10.9??? Plan: * Treatment: * Procedure Codes:?G0121 COLOR EC CNCR SCR;COLNSCPY NO HI RSK, 0529F INTRVL 3+YRS PTS CLNSCP DOCD, 0528F RCMND FLW-UP 10 YRS DOCD, Modifiers: 1P , 58891 UPPER GI ENDOSCOPY, BIOPSY * * The named appointment provid er may or may not be the originator of this progress note, and it is not deemed complete until electronically signed by the appointment provider. Sign off status: Pending * Provider:?Ladarius Oneal MD Date:? 023 Generated for Shoni silvano/Angelina/eTransmitting on:?07/02/2024 08:07 AM EDT
--- OUTSIDE RECORDS SUMMARY | 2024-07-02 08:08 | XMS_ITS | Patient Health Record ---
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 No Points 0 Interpretation Negative Section Notes: He does not smoke or use any significant amounts of alcohol He does not smoke or use any significant amounts of alcohol He does not smoke or use any significant amounts of alcohol Problems Problem Type SNOMED Code ICD Code Onset Dates Problem Status W/U Status Risk Notes Problem [id number] Encounter for screening for malignant neoplasm of colon (Z12.11) Active confirmed Problem Diverticular disease of colon (945138894) Diverticulosis of large intestine without perforation or abscess without bleeding (K57.30) Active confirmed Problem Chronic gastritis (8165832) Gastritis, chronic (K29.50) Active confirmed Problem [id number] Ampullary adenom a (D13.5) Active confirmed Problem 320826664 Abdominal pain, generalized (R10.84) Active confirmed Problem 813080650 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) Active confirmed Problem 578259577 Gastroesophageal reflux disease, unspecified whether esophagitis present (K21.9) Active confirmed Plan Of Treatment Future Test Test Name Order Date COLONOSCOPY 02/07/2011 COLONOSCOPY 05/21/2018 UPPER GI ENDOSCOPY 12/07/2022 COLONOSCOPY 12/07/2022 Insurance Providers Payer Name Payer Address Payer Phone Subscriber Number Group Number Insured Name Patient Relationship to Insured Coverage Start Date Coverage End Date MEDICARE OF [place] [address] [place] [address] [id number] WAYNE GRAHAM Self - patient is the insured Medical (General) History Medical History History ICD Code Hypertension Hyperlipidemia CAD-CABG as below Denies MA,DM,CVA,Lung disease,renal dise ase Tubulovillous adenoma of major papilla a s below Screening colonoscopy in 2011 was neg. e xcept for a hyperplastic polyp Negative screening colonoscopy in 07/2018 Surgical History Surgery Date(Month/Year) 4 V CABG 2002 Whipple surgery in 07/2016 fo r villous adenoma of the major ampulla-Dr. Oglesby at [facility]. He describes a wound infection requiring a wound-vac Incisional hernia 12/2016-Dr. Oglesby x2
== END 2024-07-02 08:03 | disposition home or self-care (01) ==
LOC: HO.XRAY 08:02
PROVIDERS: PCP Internal Medicine; Visit Provider Internal Medicine
DX: M25.511 Pain in right shoulder (principal); M25.512 Pain in left shoulder
CPT/HCPCS: 73030

== ENCOUNTER → 2024-07-02 08:07 | Outpatient (BNV) | payer MEDICARE, MEDICAID, SELFPAY | PROVIDERS: PCP Internal Medicine; Visit Provider Radiology Diagnostic Radiology | DX: M25.511 Pain in right shoulder (principal) | CPT/HCPCS: 73030 ==

== ENCOUNTER 2024-07-21 10:56 | Emergency (ER) | payer MEDICARE, MEDICAID, SELFPAY ==
--- NOTE | ~2024-07-21 | XR_ITS ---
EXAMINATION: XR CHEST CLINICAL INFORMATION: pneumoina. coughing COMPARISON: December 28, 2023. TECHNIQUE: Frontal view of the chest was obtained. FINDINGS: Asymmetric haziness in the mid to lower left hemithorax. No pneumothorax. No hyperinflation. Sternal wires. Cardiomediastinal silhouette size is normal with a prominent pulmonary artery outflow and a round cardiac apex. Vascular clips in the epigastric and right upper quadrant of the abdomen. S-shaped curvature of the thoracolumbar spine.. XR/XR chest 1V IMPRESSION: Questionable airspace disease versus small layering left-sided pleural effusion. Electronically signed by: Blair Kim MD 07/21/2024 12:08 PM EDT
[2024-07-21 11:28] VITALS: BP 159/93; PULSE 76; RESP 19; TEMP 36.6; O2SAT 98; BMI 25.5
--- NOTE | 2024-07-21 11:32 | ECG_ITS ---
Test Reason : ABD PAIN Blood Pressure : */* mmHG Vent. 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
[2024-07-21 12:00] LABS: MANUAL DIFF FLAG NO
[2024-07-21 12:02] LABS: Basophils Absolute Auto 0.1 X10*3/uL (0.0-0.2); Basophils Percent Auto 0.4 % (0-2); Eosinophils Absolute Auto 0.5 X10*3/uL (0.0-0.4); Eosinophils Percent Auto 4.3 % (0-4); Hematocrit 43.1 % (42.0-52.0); Hemoglobin 14.8 g/dl (14.0-18.0); Imm Gran Abs Auto 0.05 X10*3/uL (0.00-0.03); Imm Gran Pct Auto 0.4 % (0.0-0.4); Lymphocytes Absolute Auto 1.4 X10*3/uL (1.2-4.9); Lymphocytes Percent Auto 12.2 % (20-40); Mean Corpuscular HGB Conc 34.3 g/dl (31.0-36.0); Mean Corpuscular Hemoglobin 30.6 pg (27.0-33.0); Mean Corpuscular Volume 89.2 fL (80.0-98.0); Mean Platelet Volume 10.5 fL (9.4-12.4); Monocytes Absolute Auto 0.7 X10*3/uL (0.1-1.2); Neutrophils Absolute Auto 8.6 x10*3/uL (2.0-8.3); Neutrophils Percent Auto 76.7 % (45-73); Platelet Count 210 X10*3/uL (160-400); Red Blood Count 4.83 X10*6/uL (4.60-5.80); Red Cell Distribution Width 12.4 % (11.0-16.0); White Blood Count 11.2 X10*3/uL (4.8-10.8)
[2024-07-21 12:18] LABS: Alanine Aminotransferase 21 U/L (0-40); Albumin Level 4.3 g/dL (3.5-5.0); Alkaline Phosphatase 124 U/L (39-117); Anion Gap 11 (12-20); Aspartate Amino Transferase 29 U/L (5-37); Bilirubin Total 1.3 mg/dL (0.0-1.0); Blood Urea Nitrogen 26 mg/dL (9-16); Calcium 8.9 mg/dL (8.4-10.2); Carbon Dioxide 28 mmol/L (22-29); Chloride 106 mmol/L (96-108); Creatinine Clr Calc Pharmacy 84.9; Estimated Glomerular Filt Rate > 60; Glucose Random 124 mg/dL (60-115); Lipase 15 U/L (8-78); Potassium 4.5 mmol/L (3.3-5.1); Sodium 140 mmol/L (135-145); Total Protein 7.5 g/dL (6.5-8.0)
[2024-07-21 12:22] LABS: Troponin-I High Sensitivity 3.7 ng/L (<3.5-35.0)
--- NOTE | 2024-07-21 12:26 | ED_ITS ---
HPI - General Adult General Chief complaint: Nausea/Vomiting/Diarrhea Stated complaint: vomiting stepped on nail Time Seen by Provider: 07/21/24 16:04 Source: patient Mode of arrival: ambulatory Limitations: no limitations History of Present Illness ED Provider: HPI narrative: Patient complaining of cough for last 3 weeks with mucopurulent phlegm since last night been vomiting 4 or 5 times no diarrhea no abdominal no fever no chills patient apparently stepped on a nail about 3 weeks wound was cleaned no antibiotic was taken and no significant infection at the site patient's is also sick with same Related Data Home Medications ?Medication ?Instructions ?Recorded ?Confirmed multivitamin 1 tab PO DAILY 03/05/23 06/13/24 aspirin 81 mg tablet,delayed 81 mg PO DAILY 06/06/23 06/13/24 release (Adult Aspirin Regimen) atorvastatin 20 mg tablet 20 mg PO BEDTIME 06/06/23 06/13/24 metoprolol succinate 50 mg 50 mg PO DAILY 06/06/23 06/13/24 tablet,extended release 24 hr omeprazole 20 mg capsule,delayed 20 mg PO DAILY 06/06/23 06/13/24 release Previous Rx's ?Medication ?Instructions ?Recorded [id number]-[id number]-[id number] 2 cap PO BID #50 caps 06/18/24 6,000-19,000-30,000 unit capsule,delayed rel (Creon) celecoxib 200 mg capsule 200 mg PO DAILY PRN severe pain 30 07/11/24 days #30 caps amoxicillin 875 mg-potassium 1 tab PO BID #20 tabs 07/21/24 clavulanate 125 mg tablet ondansetron 4 mg disintegrating 4 mg PO Q6-8H PRN nausea and 07/21/24 tablet vomiting #7 tabs Allergies Allergy/AdvReac Type Severity Reaction Status Date / Time No Known Allergies Allergy Verified 07/21/24 11:30 [No Known Allergies*] Review of Systems 2 Review of Systems: Yes all other systems are reviewed and are negative PMFSH Past Medical History Medical History Pure hypercholesterolemia Neuropathy COVID DJD (degenerative joint disease) Ampullary adenoma Bleeding hemorrhoids Diverticulosis Atherosclerotic cardiovascular disease HTN (hypertension) Elevated cholesterol CAD (coronary artery disease) Surgical History H/O Whipple procedure S/P CABG x 1 History of incisional hernia repair Hx of right inguinal hernia repair Hx of endoscopic retrograde cholangiopancreatography H/O colonoscopy History of Whipple procedure Hx of coronary artery bypass graft Family History Family History Mother No problems noted. Brother Heart problem Father Heart problem Social History Social History Housing: House Alcohol intake: never Patient Tobacco Use Status: Never used Tobacco e-Cigarette/Vaping Use: Never Used Second Hand Smoke Exposure: No Advance Directives: Yes Advance Directives on File: Yes Advance Directives Date on File: 04/12/24 Do you have a plan to hurt others: No Plan service: No Current occupational status: unemployed Current occupational exposures/hazards: No Cognitive needs: No Hearing needs: No Vision needs: No Physical Exam ED Vital Signs: Vital Signs - 24 hr 07/21/24 11:28 07/21/24 16:00 07/21/24 16:31 Temperature 98 F 97.7 F 97.7 F Pulse Rate 76 64 64 Respiratory Rate 19 16 16 Blood Pressure 159/93 H 146/72 H 146/72 H Pulse Oximetry 98 96 96 Oxygen Delivery Method Room Air Room Air Room Air BMI result Body Mass Index 25.5 Appearance: Alert. Oriented X3. No acute distress. Eyes: No pallor or icterus ENT: Pharynx normal. Oral Mucosa moist Neck: Normal inspection. Neck supple. CVS: Normal heart rate and rhythm. Pulses normal. Respiratory: No respiratory distress. Equal air entry bilateral, no wheezing/rales/rhonchi bilateral prolonged Abdomen: Soft and nontender. Bowel sounds are present, no mass palpable, no CVA tenderness Skin: Skin warm and dry. Normal skin color. Normal skin turgor. Extremities: No lower extremity edema. No calf tenderness left foot with small puncture wound no signs of infection Neuro: Oriented X 3. No motor deficit. Course Course Course Narrative: RME: 58-year-old male history of Whipple procedure and [place] presents to ED for 3 weeks of coughing and chest congestion and then today having multiple episodes of vomiting with abdominal pain. Patient states also 3 days ago he stepped on a nail that he removed. Nail hit his left foot but he removed it. Foot exam negative for swelling running or pus discharge. Patient denies any chest pain or shortness of breath. Labs EKG chest x-ray ordered Medications Administered Discontinued Medications Generic Name Dose Route Start Last Admin Trade Name Freq PRN Reason Stop Dose Admin Amoxicillin/Clavulanate Potassium 875 mg 07/21/24 16:12 07/21/24 16:26 Amoxicillin/Potassium Clav 875 Mg Tablet PO 07/21/24 16:13 875 mg ONCE ONE Administration Diphtheria/Tetanus/Acell Pertussis 0.5 ml 07/21/24 16:19 07/21/24 16:26 Diphth,Pertus(Acell),Tet Adult 0.5 Ml Syringe IM 07/21/24 16:20 0.5 ml .ONCE ONE Administration Ondansetron HCl 4 mg 07/21/24 16:12 07/21/24 16:26 Ondansetron Odt 4 Mg Tab.Rapdis TRANSLINGU 07/21/24 16:13 4 mg ONCE ONE Administration Medical Decision Making Medical Decision Making [facility] Narrative: Patient has acute bronchitis with viral gastritis will prescribe Augmentin as patient has stepped on the nail will give tetanus shot Differential Diagnosis Differential Diagnoses: The differential diagnosis associated with the presentation includes Bronchitis/pneumonia/gastroenteritis/pancreatitis/gastritis Lab Data [facility] Lab Attestation statement: I reviewed the patient's lab results. 07/21/24 11:55 07/21/24 11:55 Labs: Lab Results 07/21/24 Range/Units 11:55 WBC 11.2 H (4.8-10.8) X10*3/uL RBC 4.83 (4.60-5.80) X10*6/uL Hgb 14.8 (14.0-18.0) g/dl Hct 43.1 (42.0-52.0) % MCV 89.2 (80.0-98.0) fL MCH 30.6 (27.0-33.0) pg MCHC 34.3 (31.0-36.0) g/dl RDW 12.4 (11.0-16.0) % Plt Count 210 D (160-400) X10*3/uL MPV 10.5 (9.4-12.4) fL Immature Gran % (Auto) 0.4 (0.0-0.4) % Neut % (Auto) 76.7 H (45-73) % Lymph % (Auto) 12.2 L (20-40) % [place] % (Auto) 6.0 (2-11) % Eos % (Auto) 4.3 H (0-4) % Baso % (Auto) 0.4 (0-2) % Lymph # (Auto) 1.4 (1.2-4.9) X10*3/uL [place] # (Auto) 0.7 (0.1-1.2) X10*3/uL Eos # (Auto) 0.5 H (0.0-0.4) X10*3/uL Baso # (Auto) 0.1 (0.0-0.2) X10*3/uL Abs Immat Gran (auto) 0.05 H (0.00-0.03) X10*3/uL Absolute Neuts (auto) 8.6 H (2.0-8.3) x10*3/uL Absolute Nucleated RBC 0.000 (0.0-0.012) X10*3/uL Nucleated RBC % (auto) 0.0 (0.0-0.2) /100WBC Sodium 140 (135-145) mmol/L Potassium 4.5 (3.3-5.1) mmol/L Chloride 106 (96-108) mmol/L Carbon Dioxide 28 (22-29) mmol/L Anion Gap 11 L (12-20) BUN 26 H (9-16) mg/dL Creatinine 0.80 (0.5-1.4) mg/dL Estim Creat Clear Calc 84.9 Estimated GFR > 60 Random Glucose 124 H (60-115) mg/dL Calcium 8.9 (8.4-10.2) mg/dL Total Bilirubin 1.3 H (0.0-1.0) mg/dL AST 29 (5-37) U/L ALT 21 (0-40) U/L Alkaline Phosphatase 124 H (39-117) U/L Troponin I High Sens 3.7 (<3.5-35.0) ng/L Total Protein 7.5 (6.5-8.0) g/dL Albumin 4.3 (3.5-5.0) g/dL Lipase 15 (8-78) U/L Influenza Type A (PCR) NEGATIVE (Negative) Influenza Type B (PCR) NEGATIVE (Negative) RSV RNA Qual (PCR) NEGATIVE (Negative) SARS-CoV-2 RNA (RT-PCR) NEGATIVE (Negative) Independent Interpretation I performed an independent interpretation of an: Plain X-Ray Radiology Impression Discussion of test interpretation with radiology: I have reviewed the radiologist's reading. Discharge Plan Discharge Clinical Impression: Acute bronchitis, Vomiting Patient Disposition: Home, Self-Care Instructions: Acute Bronchitis (ED), Acute Nausea and Vomiting (ED) Additional Instructions: take antibiotics as prescribed medicine for nausea/vomiting as prescribed follow up with pcp if not better Prescriptions: New ondansetron 4 mg tablet,disintegrating 4 mg PO Q6-8H PRN (Reason: nausea and vomiting) Qty: 7 0RF amoxicillin-pot clavulanate 875-125 mg tablet 1 tab PO BID Qty: 20 0RF No Action Creon 6,000-19,000 -30,000 unit capsule,delayed release(DR/EC) 2 cap PO BID Qty: 50 1RF celecoxib 200 mg capsule 200 mg PO DAILY PRN (Reason: severe pain) 30 Days Qty: 30 1RF Rx Instructions: Take with food only as needed for severe pain multivitamin Tablet 1 tab PO DAILY aspirin [Adult Aspirin Regimen] 81 mg tablet,delayed release (DR/EC) 81 mg PO DAILY omeprazole 20 mg capsule,delayed release(DR/EC) 20 mg PO DAILY atorvastatin 20 mg tablet 20 mg PO BEDTIME metoprolol succinate 50 mg tablet extended release 24 hr 50 mg PO DAILY Interventions: ED Discharge Assessment Last Done: 07/21/24 16:31 Discharge Date/Time: 07/21/24 16:31 Print Language: Dominican
[2024-07-21 12:47] LABS: Influenza A PCR NEGATIVE (Negative); Influenza B PCR NEGATIVE (Negative); Resp Syncy Virus RNA Qual PCR NEGATIVE (Negative); SARS COV2 PCR INHOUSE NEGATIVE (Negative)
[2024-07-21 16:00] VITALS: BP 146/72; PULSE 64; RESP 16; TEMP 36.5; O2SAT 96
--- NOTE | 2024-07-21 16:05 | PC.NURSE ---
58-year-old male history of Whipple procedure and [place] presents to ED for 3 weeks of coughing and chest congestion. Alert and oriented. c/o cough for 3 weeks. Lungs essentially clear bilat. Respirations even and non-labored. Abdomen soft, non-tender with positive bowel sounds. Denies any abdominal pain at this time. Positive pedal pulses with no edema.
[2024-07-21] MEDS: Diphth,Pertus(ACell),Tet Adult 0.5 ML SYRINGE IM (16:26)
[2024-07-21] MEDS: Ondansetron ODT 4 MG TAB.RAPDIS TRANSLINGU (16:26)
[2024-07-21] MEDS: Amoxicillin/Potassium Clav 875 MG TABLET PO (16:26)
[2024-07-21 16:31] VITALS: BP 146/72; PULSE 64; RESP 16; TEMP 36.5; O2SAT 96
--- OUTSIDE RECORDS SUMMARY | 2024-07-21 17:29 | XMS_ITS | Patient Health Record ---
Author Organization [facility] Address [address] [place] [address] Care Team Providers Care Casting Assistant Name Role Phone Philip Banks MD Primary Care Provider Unavailab Ladarius Helms Unavailable [phone] ruben sterling Unavailable Unavailable Reason For Referral [...] Omeprazole 20 MG TAKE 1 CAPSULE BY [facility] EVERY DAY AT BEDTIME DIRECTED Oral for [...] Problem Status W/U Status Risk Notes Problem 913976762 Encounter for screening for malignant neoplasm of colon (Z12.11) Active confirmed Problem Diverticular disease of colon (151927349) Diverticulosis of large intestine without perforation or abscess without bleeding (K57.30) Active confirmed Problem Chronic gastritis (0224808) Gastritis, chronic (K29.50) Active confirmed Problem 539146023 Ampullary adenom a (D13.5) Active confirmed Problem 878670596 Abdominal pain, generalized (R10.84) Active confirmed Problem 043172593 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) Active confirmed Problem 892834940 Gastroesophageal reflux disease, unspecified whether esophagitis present (K21.9) Active confirmed Plan Of Treatment Future Test Test Name Order Date COLONOSCOPY 02/07/2011 COLONOSCOPY 05/21/2018 UPPER GI ENDOSCOPY 12/07/2022 COLONOSCOPY 12/07/2022 Insurance Providers Payer Name Payer Address Payer Phone Subscriber Number Group Number Insured Name Patient Relationship to Insured Coverage Start Date Coverage End Date MEDICARE OF [place] [address] [place] [address] [id number] WAYNE GRAHAM Self - patient is the insured Medical (General) History Medical History History ICD Code Hypertension Hyperlipidemia CAD-CABG as below Denies PA,DM,CVA,Lung disease,renal dise ase Tubulovillous adenoma of major [...]
--- OUTSIDE RECORDS SUMMARY | 2024-07-21 17:29 | XMS_ITS ---
Author Organization [facility] Address [address] [place] [address] Care Team Providers Care Television Maintenance Worker Name Role Phone Philip Banks MD Primary Care Provider Unavailab Ladarius Helms Unavailable [phone] oyula, ignatiuis Unavailable Unavailable REASON FOR VISIT abdominal pain, gerd,screening Problems Problem Type SNOMED Code ICD Code Onset Dates Problem Status W/U Status Risk Notes Problem Diverticular disease of colon (665045713) Diverticulosis of large intestine without perforation or abscess without bleeding (K57.30) Active confirmed Problem Chronic gastritis (9160619) Gastritis, chronic (K29.50) Active confirmed Encounters Encounter Location Date Provider [place] [facility] [place] [address] [place] [phone] 03/07/2023 Ladarius Oneal Encounter for scre ening [...] Notes * WAYNE GRAHAMDOB:1955 (68 yo M)Acc No.[id number]:03/07/2023 EGD and COL/MAC Patient:?WAYNE GRAHAM Provider:?Ladarius Oneal MD :[id number]???Age:67 Y???Sex:Male Ricardo e:03/07/2023 Address:[address] [place], [place] [id number] Pcp:Philip Banks MD Subjective: * Chief Complaints: [...] FLW-UP 10 YRS DOCD, Modifiers: 1P , 56719 UPPER GI ENDOSCOPY, BIOPSY * * The named appointment provid er may or may not be the originator of this progress note, and it is not deemed complete until electronically signed by the appointment provider. Sign off status: Pending * Provider:?Ladarius Oneal MD Date:? 023 Generated for Shoni silvano/Angelina/eTransmitting on:?07/21/2024 05:29 PM EDT
== END 2024-07-21 16:31 | disposition home or self-care (01) ==
PROVIDERS: Physician Assistant; Emergency Provider Internal Medicine; PCP Internal Medicine
DX: S91.332A Puncture wound without foreign body, left foot, initial encounter (principal); J20.9 Acute bronchitis, unspecified; R11.2 Nausea with vomiting, unspecified; R94.31 Abnormal electrocardiogram [ECG] [EKG]; R05.9 Cough, unspecified; R09.89 Other specified symptoms and signs involving the circulatory and respiratory systems; W26.9XXA Contact with unspecified sharp object(s), initial encounter; Y93.9 Activity, unspecified; Y92.9 Unspecified place or not applicable; Y99.8 Other external cause status; Z23 Encounter for immunization; Z79.899 Other long term (current) drug therapy; Z03.818 Encounter for observation for suspected exposure to other biological agents ruled out
CPT/HCPCS: 0241U; 71045; 80053; 83690; 84484; 85025; 90471; 90715; 93005; 99284

== ENCOUNTER → 2024-07-21 11:32 | Outpatient (BNV) | payer MEDICARE, MEDICAID, SELFPAY | PROVIDERS: Emergency Provider Internal Medicine; PCP Internal Medicine; Visit Provider Internal Medicine | DX: I25.2 Old myocardial infarction (principal) | CPT/HCPCS: 93010 ==

== ENCOUNTER → 2024-07-21 11:33 | Outpatient (BNV) | payer MEDICARE, MEDICAID, SELFPAY | PROVIDERS: PCP Internal Medicine; Visit Provider Radiology Diagnostic Radiology | DX: J18.9 Pneumonia, unspecified organism (principal); R05.9 Cough, unspecified | CPT/HCPCS: 71045 ==

== ENCOUNTER 2024-08-11 13:36 | Emergency (ER) | payer MEDICARE, MEDICAID, SELFPAY ==
[2024-08-11 13:54] VITALS: BP 123/75; PULSE 64; RESP 18; TEMP 36.6; O2SAT 98; BMI 25.8
--- NOTE | 2024-08-11 13:58 | ED.GENADULT ---
HPI - General Adult General Chief complaint: Wound/Laceration Stated complaint: L Hand Lac Time Seen by Provider: 08/11/24 15:19 Related Data Home Medications ?Medication ?Instructions ?Recorded ?Confirmed multivitamin 1 tab PO DAILY 03/05/23 06/13/24 aspirin 81 mg tablet,delayed 81 mg PO DAILY 06/06/23 06/13/24 release (Adult Aspirin Regimen) atorvastatin 20 mg tablet 20 mg PO BEDTIME 06/06/23 06/13/24 metoprolol succinate 50 mg 50 mg PO DAILY 06/06/23 06/13/24 tablet,extended release 24 hr omeprazole 20 mg capsule,delayed 20 mg PO DAILY 06/06/23 06/13/24 release Previous Rx's ?Medication ?Instructions ?Recorded celecoxib 200 mg capsule 200 mg PO DAILY PRN severe pain 30 07/11/24 days #30 caps amoxicillin 875 mg-potassium 1 tab PO BID #20 tabs 07/21/24 clavulanate 125 mg tablet ondansetron 4 mg disintegrating 4 mg PO Q6-8H PRN nausea and 07/21/24 tablet vomiting #7 tabs [id number]-ivjqqqwz-jrtjifa 2 cap PO BID #50 caps 08/09/24 6,000-19,000-30,000 unit capsule,delayed rel (Creon) Allergies Allergy/AdvReac Type Severity Reaction Status Date / Time No Known Allergies Allergy Verified 08/11/24 13:55 [No Known Allergies*] [facility] Past Medical History Medical History Pure hypercholesterolemia Neuropathy COVID DJD (degenerative joint disease) Ampullary adenoma Bleeding hemorrhoids Diverticulosis Atherosclerotic cardiovascular disease HTN (hypertension) Elevated cholesterol CAD (coronary artery disease) Surgical History H/O Whipple procedure S/P CABG x 1 History of incisional hernia repair Hx of right inguinal hernia repair Hx of endoscopic retrograde cholangiopancreatography H/O colonoscopy History of Whipple procedure Hx of coronary artery bypass graft Family History Family History Mother No problems noted. Brother Heart problem Father Heart problem Social History Social History Housing: House Alcohol intake: never Patient Tobacco Use Status: Never used Tobacco e-Cigarette/Vaping Use: Never Used Second Hand Smoke Exposure: No Advance Directives: Yes Advance Directives on File: Yes Advance Directives Date on File: 04/12/24 Do you have a plan to hurt others: No Plan service: No Current occupational status: unemployed Current occupational exposures/hazards: No Cognitive needs: No Hearing needs: No Vision needs: No Physical Exam ED Vital Signs: Vital Signs - 24 hr 08/11/24 13:54 Temperature 98 F Pulse Rate 64 Respiratory Rate 18 Blood Pressure 123/75 Pulse Oximetry 98 Oxygen Delivery Method Room Air BMI result Body Mass Index 25.8 Course Course Course Narrative: RME, this is a rapid medical exam performed by Han Loredo please refer to primary provider for complete H&P- 68-year-old male presents for evaluation of a laceration to his left index finger of the dorsal surface of the base. About 1.5 cm linear laceration. He is able to fully extend the finger. You will require some closure. Sterile dressing applied Medications Administered Discontinued Medications Generic Name Dose Route Start Last Admin Trade Name Freq PRN Reason Stop Dose Admin Bacitracin 1 appl 08/11/24 16:39 08/11/24 16:55 Bacitracin Oint 0.9 Gm Packet TOPICAL 08/11/24 16:40 1 appl ONCE ONE Administration Protocol Lidocaine HCl 5 ml 08/11/24 15:43 08/11/24 15:59 Lidocaine Hcl 1 % Mpf 5 Ml Vial INFILTRATI 08/11/24 15:44 5 ml ONCE ONE Administration Discharge Plan Discharge Clinical Impression: Laceration of hand Patient Disposition: Home, Self-Care Instructions: Laceration (ED) Additional Instructions: You were seen in the emergency department after accidentally cutting your left hand. We applied 4 sutures to your hand. Please keep wound clean and dry. Please have sutures removed in 7-10 days. Please keep dressing on wound until tomorrow if the dressing stays dry. Do not submerge wound. Tomorrow you can take dressing off and gently rinse with warm soapy water. Pat dry. Do not pick at wound. If any new or worsening symptoms occur including but not limited to increased redness, swelling, drainage, increased pain, please seek emergent care. Prescriptions: No Action celecoxib 200 mg capsule 200 mg PO DAILY PRN (Reason: severe pain) 30 Days Qty: 30 1RF Rx Instructions: Take with food only as needed for severe pain Creon 6,000-19,000 -30,000 unit capsule,delayed release(DR/EC) 2 cap PO BID Qty: 50 1RF multivitamin Tablet 1 tab PO DAILY ondansetron 4 mg tablet,disintegrating 4 mg PO Q6-8H PRN (Reason: nausea and vomiting) Qty: 7 0RF amoxicillin-pot clavulanate 875-125 mg tablet 1 tab PO BID Qty: 20 0RF aspirin [Adult Aspirin Regimen] 81 mg tablet,delayed release (DR/EC) 81 mg PO DAILY omeprazole 20 mg capsule,delayed release(DR/EC) 20 mg PO DAILY atorvastatin 20 mg tablet 20 mg PO BEDTIME metoprolol succinate 50 mg tablet extended release 24 hr 50 mg PO DAILY Interventions: ED Discharge Assessment Last Done: 08/11/24 16:59 Discharge Date/Time: 08/11/24 16:59 Print Language: Syriac
--- NOTE | 2024-08-11 15:46 | ED_ITS ---
HPI - Wound/Laceration General Chief Complaint: Wound/Laceration Stated Complaint: L Hand Lac Time Seen by Provider: 08/11/24 15:19 Source: patient and family ( present giving additional history ) Mode of arrival: ambulatory Limitations: no limitations History of Present Illness ED Provider: Maggie Hurd PA-C HPI narrative: 68 year old male presents who is right hand dominant with a past medical history of atherosclerotic CVD presents to the ED with a chief complaint of left hand laceration over the 2nd proximal metacarpal. Patient reports that he was using a tool to cut metal on a car, and it slipped out of his right hand and struck his left hand. Patient's states that she cleaned the area with iodine and bacitracin before coming in, she also reports it needed compression bandage due to bleeding. Patient denies use of any blood thinners, but he does take a daily aspirin. Patient states mild pain with flexion and extension of the MCP. Patient denies numbness or tingling of the metacarpals or radiating up into his arm. Patient is up-to-date with his tetanus, last received it 1 month ago. Patient denies any other complaints. Onset (ago): hour(s) Location: other (left hand, over MCP ) Place: home Patient tetanus UTD: Yes (1 month ago ) Context: accidental Associated symptoms: none Treatments prior to arrival: bandage Related Data Home Medications ?Medication ?Instructions ?Recorded ?Confirmed multivitamin 1 tab PO DAILY 03/05/23 06/13/24 aspirin 81 mg tablet,delayed 81 mg PO DAILY 06/06/23 06/13/24 release (Adult Aspirin Regimen) atorvastatin 20 mg tablet 20 mg PO BEDTIME 06/06/23 06/13/24 metoprolol succinate 50 mg 50 mg PO DAILY 06/06/23 06/13/24 tablet,extended release 24 hr omeprazole 20 mg capsule,delayed 20 mg PO DAILY 06/06/23 06/13/24 release Previous Rx's ?Medication ?Instructions ?Recorded celecoxib 200 mg capsule 200 mg PO DAILY PRN severe pain 30 07/11/24 days #30 caps amoxicillin 875 mg-potassium 1 tab PO BID #20 tabs 07/21/24 clavulanate 125 mg tablet ondansetron 4 mg disintegrating 4 mg PO Q6-8H PRN nausea and 07/21/24 tablet vomiting #7 tabs grlppq-[id number]-prggwwf 2 cap PO BID #50 caps 08/09/24 6,000-19,000-30,000 unit capsule,delayed rel (Creon) Allergies Allergy/AdvReac Type Severity Reaction Status Date / Time No Known Allergies Allergy Verified 08/11/24 13:55 [No Known Allergies*] Review of Systems 2 Review of Systems: Constitutional: No Weight loss, No Fever, No Chills, No Night Sweats, No Fatigue, No Malaise ENT/Mouth: No Hearing loss, No Ear Pain, No Nasal Congestion, No Sinus Pain, No Hoarseness, No sore throat, No Rhinorrhea, No Swallowing Difficulty Eyes: No Eye Pain, No Swelling, No Redness, No Foreign Body, No Discharge, No Vision Changes Cardiovascular: No Chest Pain, No SOB, No Dyspnea on Exertion, No Orthopnea, No Edema, No Palpitations Respiratory: No Cough, No Sputum, No Wheezing, No Smoke Exposure, No Dyspnea Gastrointestinal: No Nausea, No Vomiting, No Diarrhea, No Constipation, No Abdominal pain, No Hematochezia, No Melena Genitourinary: No irregular bleeding, No Dysuria, No Urinary Frequency, No Hematuria, No Urinary Incontinence/retention, No Urgency, No Flank Pain, No Urinary Flow Changes, No Hesitancy Musculoskeletal: No joint pain, No Myalgias, No Joint Swelling Skin: No Skin Lesions, No rash. 1.5 cm laceration over the left MCP joint. Neuro: No Weakness, No Numbness, No Paresthesias, No Loss of Consciousness, No Dizziness, No Headache Psych: No Anxiety/Panic, No Depression, No SI/HI/AH/VH, No Social Issues, Heme/Lymph: No Bruising, No Bleeding,No Lymphadenopathy Endocrine: No Polyuria, No Polydipsia, No Temperature Intolerance [facility] Past Medical History Attestation statement: The following information was validated with the patient. [facility] Narrative: Patient and patient's confirmed the PMH Source: old records reviewed, obtained from family and nursing notes reviewed Medical History Pure hypercholesterolemia Neuropathy COVID DJD (degenerative joint disease) Ampullary adenoma Bleeding hemorrhoids Diverticulosis Atherosclerotic cardiovascular disease HTN (hypertension) Elevated cholesterol CAD (coronary artery disease) Surgical History H/O Whipple procedure S/P CABG x 1 History of incisional hernia repair Hx of right inguinal hernia repair Hx of endoscopic retrograde cholangiopancreatography H/O colonoscopy History of Whipple procedure Hx of coronary artery bypass graft Family History Family History Mother No problems noted. Brother Heart problem Father Heart problem Social History Social History Housing: House Alcohol intake: never Patient Tobacco Use Status: Never used Tobacco e-Cigarette/Vaping Use: Never Used Second Hand Smoke Exposure: No Advance Directives: Yes Advance Directives on File: Yes Advance Directives Date on File: 04/12/24 Do you have a plan to hurt others: No Plan service: No Current occupational status: unemployed Current occupational exposures/hazards: No Cognitive needs: No Hearing needs: No Vision needs: No Physical Exam 2 Vital Signs: Vital Signs: Last Vital Signs Temp 98 F 08/11/24 16:59 Pulse 64 08/11/24 16:59 Resp 18 08/11/24 16:59 BP 123/75 08/11/24 16:59 Pulse Ox 98 08/11/24 16:59 O2 Del Method Room Air 08/11/24 16:59 BMI result Body Mass Index 25.8 Const: General: cooperative, comfortable and no acute distress O rientation/consciousness: patient oriented x3 Limitations: no limitations HEENT: Head: Yes normal to inspection, Yes normocephalic and Yes atraumatic Ears: hearing grossly normal bilaterally General nose exam: Normal external nose present Face and sinus: Yes normal facial exam Eyes: General: appearance normal, both eyes and all related structures E yelids: Yes eyelids normal Conjunctivae: conjunctivae normal Sclerae: s clerae normal Pupils: Equal, round and reactive pupils present EOM: EOMs intact bilaterally Neck: Neck: Yes normal visual inspection, Yes full ROM and Yes no lymphadenopathy Lymphatic: no lymphadenopathy noted Resp: Effort & Inspection: normal respiratory effort and able to speak in complete sentences Skin: Other: Left hand second MCP joint 1.5 cm partial thickness laceration, no tendon involvement, full ROM, no active bleeding. Sensation intact. General skin exam: no rashes or lesions noted Wounds: no wounds Neuro: General: patient oriented x3 and moves all extremities Cranial nerves: Yes Equal, round and reactive pupils present Extrem: General: Yes normal to inspection Right upper extremity: normal to inspection Left upper extremity: full ROM, no joint enlargement and hand (sensations in tact, full ROM of all 5 digits ) Hand/finger images: 1. 1.5cm laceration Medications Administered Discontinued Medications Generic Name Dose Route Start Last Admin Trade Name Nickq PRN Reason Stop Dose Admin Bacitracin 1 appl 08/11/24 16:39 08/11/24 16:55 Bacitracin Oint 0.9 Gm Packet TOPICAL 08/11/24 16:40 1 appl ONCE ONE Administration Protocol Lidocaine HCl 5 ml 08/11/24 15:43 08/11/24 15:59 Lidocaine Hcl 1 % Mpf 5 Ml Vial INFILTRATI 08/11/24 15:44 5 ml ONCE ONE Administration Medical Decision Making Medical Decision Making MDM Narrative: 68 year old male presents who is right hand dominant with a past medical history of atherosclerotic CVD presents to the ED with a chief complaint of left hand laceration over the 2nd proximal metacarpal. Differential diagnosis includes but not limited to laceration, abrasion, puncture wound, tendon or muscle injury to the MCP of 2nd digit. Following physical exam, the wound presented as a linear 1.5 cm laceration, with no tendon or muscle present. The patient also had opposition of all carpals to the thumb digit. 2nd metacarpal had full range of motion, and the patient reported none to minimal pain to the MCP joint where the laceration was appreciated. This allowed us to rule out abrasion, puncture wound and tendon/muscle involvement of the 2nd MCP joint. Due to the separation of the skin over the 2nd MCP joint, we decided that the injury needed a few sutures. The patient's finger was soaked in iodine for 10-15 minutes. We were able to use a sterile field to place four 5-0 nylon sutures. See procedure note for further details. After applying bacitracin and clean dressing, patient given good wound care instructions. Patient was encouraged to come back to the ED if there is purulent discharge, warmth and erythema, or increased pain at the site. Patient was instructed to follow up to the ED or primary care in 7-10 days for suture removal. Differential Diagnosis Differential Diagnoses: The differential diagnosis associated with the presentation includes Differential diagnosis includes but not limited to laceration, abrasion, puncture wound, tendon injury. Procedures Laceration Laceration 1: Site: hand Side (If applicable): left Size (cm): 1.5 Description: linear Depth: simple, single layer Local Anesthetic: lidocaine 1% Amount of anesthesia used (mL): 1.5 Pre-repair: wound explored, irrigated extensively and deep structures intact Skin layer closed with: nylon Size (cm): 5-0 Number of sutures: 4 Technique: simple, interrupted Discharge Plan Discharge Clinical Impression: Laceration of hand Patient Disposition: Home, Self-Care Instructions: Laceration (ED) Additional Instructions: You were seen in the emergency department after accidentally cutting your left hand. We applied 4 sutures to your hand. Please keep wound clean and dry. Please have sutures removed in 7-10 days. Please keep dressing on wound until tomorrow if the dressing stays dry. Do not submerge wound. Tomorrow you can take dressing off and gently rinse with warm soapy water. Pat dry. Do not pick at wound. If any new or worsening symptoms occur including but not limited to increased redness, swelling, drainage, increased pain, please seek emergent care. Prescriptions: No Action celecoxib 200 mg capsule 200 mg PO DAILY PRN (Reason: severe pain) 30 Days Qty: 30 1RF Rx Instructions: Take with food only as needed for severe pain Creon 6,000-19,000 -30,000 unit capsule,delayed release(DR/EC) 2 cap PO BID Qty: 50 1RF multivitamin Tablet 1 tab PO DAILY ondansetron 4 mg tablet,disintegrating 4 mg PO Q6-8H PRN (Reason: nausea and vomiting) Qty: 7 0RF amoxicillin-pot clavulanate 875-125 mg tablet 1 tab PO BID Qty: 20 0RF aspirin [Adult Aspirin Regimen] 81 mg tablet,delayed release (DR/EC) 81 mg PO DAILY omeprazole 20 mg capsule,delayed release(DR/EC) 20 mg PO DAILY atorvastatin 20 mg tablet 20 mg PO BEDTIME metoprolol succinate 50 mg tablet extended release 24 hr 50 mg PO DAILY Interventions: ED Discharge Assessment Last Done: 08/11/24 16:59 Discharge Date/Time: 08/11/24 16:59 Print Language: Kazakh
[2024-08-11] MEDS: Lidocaine HCl 1 % MPF 5 ML VIAL INFILTRATI (15:59)
[2024-08-11] MEDS: Bacitracin Oint 0.9 GM PACKET 1 APPL TOPICAL (16:55)
[2024-08-11 16:59] VITALS: BP 123/75; PULSE 64; RESP 18; TEMP 36.6; O2SAT 98
== END 2024-08-11 16:59 | disposition home or self-care (01) ==
PROVIDERS: Emergency Provider Emergency Medicine; PCP Internal Medicine
DX: S61.412A Laceration without foreign body of left hand, initial encounter (principal); W27.8XXA Contact with other nonpowered hand tool, initial encounter; Y93.89 Activity, other specified; Y92.038 Other place in apartment as the place of occurrence of the external cause; Y99.9 Unspecified external cause status
CPT/HCPCS: 12001; 99284; J2003

== ENCOUNTER 2024-10-29 10:53 | Outpatient (AMB) | payer MEDICARE, MEDICAID, SELFPAY ==
[2024-10-29 10:59] VITALS: BP 110/64; PULSE 56; O2SAT 97; BMI 25.9
--- NOTE | 2024-10-29 10:59 | MHC.PC.OV ---
Vital Signs 10/29/24 10:59 Height 5 ft 7 in Weight 165 lb 2 oz BMI 25.9 BP 110/64 Blood Pressure Location Lt brachial Position Sitting Pulse 56 Pulse Source Pulse Oximeter Pulse Oximetry (%) 97 Oxygen Delivery Method Room Air Intake Visit Reasons: 4 Months f/u [employer] Department Chair Required: No Accompanied by: Self / Same As Patient Allergies No Known Allergies (No Known Allergies*) Allergy (Verified 10/29/24 11:07) Medication List - Last Reconciled 10/29/24 by Ronan Lomas MD aspirin (Adult Aspirin Regimen) 81 mg PO DAILY atorvastatin 20 mg PO BEDTIME celecoxib 200 mg PO DAILY PRN 30 days [id number] 6,000-19,000 -30,000 unit (Creon) 2 caps PO BID metoprolol succinate ER 50 mg PO DAILY multivitamin 1 tab PO DAILY omeprazole 20 mg PO DAILY ondansetron 4 mg PO Q6-8H PRN Tobacco use date assessed: 10/29/24 Fall risk assessment: No Falls in past year Last assessed Fall Risk: 10/29/24 Dental Screening Dental Screen Date: 10/29/24 Did you have a dental visit in the last 12 months?: No Did you have a dental problem in the last 6 months where you did not have access to dental care?: No Was dental information given to patient?: Patient has dentist HPI 4 Months f/u HPI Details Patient comes in today for his follow-up visit States that he feels okay He denies any headaches or dizziness Denies any chest pains, no shortness of breath No nausea/vomiting, no abdominal pain No change in bowel habits noted He had his follow-up labs done a few months ago - to discuss his results [facility] Medical History Pure hypercholesterolemia Neuropathy COVID DJD (degenerative joint disease) Ampullary adenoma Bleeding hemorrhoids Diverticulosis Atherosclerotic cardiovascular disease HTN (hypertension) Elevated cholesterol CAD (coronary artery disease) Surgical History H/O Whipple procedure S/P CABG x 1 History of incisional hernia repair Hx of right inguinal hernia repair Hx of endoscopic retrograde cholangiopancreatography H/O colonoscopy History of Whipple procedure Hx of coronary artery bypass graft Family History Mother No problems noted. Brother Heart problem Father Heart problem Social History Housing: House Alcohol intake: never Patient Tobacco Use Status: Never used Tobacco e-Cigarette/Vaping Use: Never Used Second Hand Smoke Exposure: No Advance Directives Date on File: 04/12/24 service: No Current occupational status: unemployed Current occupational exposures/hazards: No Cognitive needs: No Hearing needs: No Vision needs: No Questionnaire PHQ-9 Over the last 2 weeks, how often have you been bothered by any of the following problems? 1. Little interest or pleasure in doing things: not at all 2. Feeling down, depressed, or hopeless: not at all 3. Trouble falling or staying asleep, or sleeping too much: not at all 4. Feeling tired or having little energy: not at all 5. Poor appetite or overeating: not at all 6. Feeling bad about yourself - or that you are a failure or have let yourself or your family down: not at all 7. Trouble concentrating on things, such as reading the newspaper or watching television: not at all 8. Moving or speaking so slowly that other people could have noticed. Or the opposite - being so fidgety or restless that you have been moving around a lot more than usual: not at all 9. Thoughts that you would be better off or of hurting yourself in some way: not at all Total score: 0 Depression Screening Interpretation: Negative Depression Screening Done: Yes 17381 - PHQ-9 Billing: Yes Source: Developed by Drs. Ladarius Concepcion, Karen Heredia, Shelton Diaz and colleagues, with an educational fanny from [employer]. Thrive Questionnaire Date Thrive assessed: 10/29/24 I am a: Patient What is your living situation today?: I have a steady place to live Within the past 12 months, did the food you bought not last and you didn't have the money to get more?: I choose not to answer this question Within the past 12 months, did you worry whether your food would run out before you got money to buy more?: I choose not to answer this question Do you have trouble paying for medicines?: No Do you have trouble getting transportation to medical appointments?: No Do you have trouble paying your heating and electricity bill?: Yes Do you have trouble taking care of your child, family member or friend?: No Do you have trouble with day-to-day activities such as bathing, preparing meals, shopping, managing finances, etc.?: No Are you currently unemployed and looking for a job?: No Are you interested in more education?: No Please select the resources that you would like help with: None Currently or been in a relationship where the following occur: No concerns reported THRIVE Score: 1 AUDIT C Alcohol Use Questionnaire (AUDIT-C) 1. How often do you have a drink containing alcohol?: Never 3. How often do you have six or more drinks on one occasion?: Never Total Score: 0 Score Reviewed/Action Taken: Yes KATHLEEN-7 AMB Questionnaire KATHLEEN-7 Date KATHLEEN - 7 assessed: 10/29/24 Feeling nervous, anxious, or on edge: 0 = Not at all Not being able to stop or control worryin = Not at all Worrying too much about different things: 0 = Not at all Trouble relaxin = Not at all Being so restless that it is hard to sit still: 0 = Not at all Becoming easily annoyed or irritable: 0 = Not at all Feeling afraid as if something awful might happen: 0 = Not at all Total KATHLEEN-7 score (0-4 normal; 5-9 mild; 10-14 moderate; 15-21 severe): 0 Source: Developed by Drs. Ladarius Concepcion, Karen Heredia, Shelton Diaz and colleagues, with an educational fanny from [employer]. Review of Systems Const Denies chills, Denies fatigue, Denies fever(s) and Denies headache(s) ENT Denies dysphagia, Denies dizziness, Denies otalgia, Denies headache(s), Denies neck pain, Denies odynophagia and Denies sore throat Card Denies chest pain, Denies palpitations and Denies dyspnea Resp Denies chest congestion, Denies cough and Denies dyspnea GI Denies abdominal pain, Denies constipation, Denies dysphagia, Denies heartburn, Denies diarrhea, Denies nausea, Denies odynophagia and Denies vomiting Denies difficulty urinating, Denies dysuria, Denies nocturia and Denies urinary frequency Musc Denies back pain and Denies neck pain Skin/Breast Denies rash Neuro Denies dizziness and Denies headache(s) Endo Denies fatigue and Denies palpitations Physical exam (Primary Care) Vital Signs: Last Vital Signs Pulse 56 10/29/24 10:59 BP 110/64 10/29/24 10:59 Pulse Ox 97 10/29/24 10:59 Oxygen Delivery Method Room Air 10/29/24 10:59 BMI result Body Mass Index 25.9 Tobacco/Smoking Status: Tobacco use Status Tobacco use date assessed 10/29/24 10/29/24 11:07 Patient Tobacco Use Status Never used Tobacco 10/29/24 11:07 e-Cigarette/Vaping Use Never Used 10/29/24 11:07 PHQ-9: PHQ-9 Score PHQ-9: Total score 0 10/29/24 11:07 Depression Screening Interpretation: Negative Thrive Assessment: Date of Thrive Assessment Date Thrive assessed 10/29/24 10/29/24 11:07 Currently or been in a relationship where the following occur: No concerns reported Const General: no acute distress and alert HENMT Ears: TM's normal bilaterally and EAC's normal Throat: Yes posterior oropharynx normal and Yes tonsils normal (no TP congestion) Neck Neck: Yes supple and No lymphadenopathy Thyroid: Thyroid normal Resp Auscultation: clear to auscultation bilaterally, no rales and no wheezes Cardio Rate: regular rate Rhythm: regular rhythm Heart sounds: no murmurs GI Palpation (GI): Soft to palpation and nontender Auscultation: normal bowel sounds General: Yes no CVA tenderness Back/Spine/Pelvis Back: no CVA tenderness Thoracic/Lumbar Spine: No lumbar spinal tenderness Skin Rashes: no rashes Extrem General: Yes no clubbing, cyanosis or edema Results Reviewed Results Reviewed: Laboratory Tests 06/05/24 07/21/24 10:52 11:55 WBC 11.2 H Hgb 14.8 Hct 43.1 Plt Count 210 D Sodium 140 Potassium 4.5 Creatinine 0.80 Estimated GFR > 60 Random Glucose 124 H Calcium 8.9 AST 29 ALT 21 Triglycerides 134 Cholesterol 123 LDL Cholesterol, Calc 62 HDL Cholesterol 35 L Lipase 15 Coding Level of Care Code Est Pt Level 4 (58253) Diagnoses Atherosclerotic cardiovascular disease I25.10 Pure hypercholesterolemia E78.00 Bilateral shoulder pain, unspecified chronicity M25.511; M25.512 Chronicity: unspecified H/O Whipple procedure Z90.410; Z90.49 Additional Codes PHQ-9 - 59132 - PHQ-9 Billing: Yes ([id number]) Assessment & Plan Assessment & Plan (1) Atherosclerotic cardiovascular disease: Code(s): I25.10 - Atherosclerotic heart disease of [place] coronary artery without angina pectoris Category: Medical Plan: S/P CABG back in 2002 Echocardiogram done last year (06/2023) revealed normal left ventricular cavity size and normal left ventricular wall thickness. The left ventricular systolic function is mildly decreased, with the visually estimated ejection fraction between 40-45%. The inferolateral wall, the basal inferior, mid inferior, and basal inferoseptal segments are all akinetic. The right ventricular cavity is normal in size and there is mildly decreased right ventricular systolic function Patient is asymptomatic from a cardiovascular standpoint Continue Aspirin 81 mg QD and Metoprolol ER 50 mg QD Follow up with cardiology as scheduled (2) Pure hypercholesterolemia: Code(s): E78.00 - Pure hypercholesterolemia, unspecified Category: Medical Plan: Results of his labs done a few months ago reviewed and discussed with patient Reinforced low cholesterol diet Continue Atorvastatin 20 mg QD Will recheck his labs and fasting lipids in 6 months for follow up - will just have patient use his current orders (updated) for his next lab draw (3) Bilateral shoulder pain: Code(s): M25.511 - Pain in right shoulder; M25.512 - Pain in left shoulder Category: Medical Qualifiers: Chronicity: unspecified Qualified Code(s): M25.511 - Pain in right shoulder; M25.512 - Pain in left shoulder Plan: X-rays of the shoulders done a few months ago in June 2024 revealed (+) supraspinatus calcific tendinitis in the left shoulder; his right shoulder x-rays came back normal Have advised patient again that with his cardiac and surgical history, taking NSAIDs in general (including Ibuprofen) is not recommended and he was switched over to celecoxib 200 mg QD PRN at his last visit Patient states that his shoulder pain has improved significantly lately and he does not take his celecoxib regularly and only when absolutely needed (4) H/O Whipple procedure: Comment: 2016 - likely due to pancreatic cancer or chronic pancreatitis Code(s): Z90.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
--- OUTSIDE RECORDS SUMMARY | 2024-10-29 11:45 | XMS_ITS | Patient Health Record ---
Author Organization [facility] Address [address] [place] [address] Care Team Providers Care Flat Screen Worker Name Role Phone Darren (RETIRED) Philip VALLES Primary Care Provider Unavailable Ladarius Oneal Unavailable [phone] ruben sterling Unavailable Unavailable Reason For Referral [...] Omeprazole 20 MG TAKE 1 CAPSULE BY [facility] EVERY DAY AT BEDTIME DIRECTED Oral [...] Problem Status W/U Status Risk Notes Problem [id number] Encounter for screening for malignant neoplasm of colon (Z12.11) Active confirmed Problem Diverticular disease of colon (177031770) Diverticulosis of large intestine without perforation or abscess without bleeding (K57.30) Active confirmed Problem Chronic gastritis (7920681) Gastritis, chronic (K29.50) Active confirmed Problem 059085294 Ampullary adenom a (D13.5) Active confirmed Problem 818162064 Abdominal pain, generalized (R10.84) Active confirmed Problem 356407234 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) Active confirmed Problem 964762404 Gastroesophageal reflux disease, unspecified whether esophagitis present (K21.9) Active confirmed Plan Of Treatment Future Test Test Name Order Date COLONOSCOPY 02/07/2011 COLONOSCOPY 05/21/2018 UPPER GI ENDOSCOPY 12/07/2022 COLONOSCOPY 12/07/2022 Insurance Providers Payer Name Payer Address Payer Phone Subscriber Number Group Number Insured Name Patient Relationship to Insured Coverage Start Date Coverage End Date MEDICARE OF [place] [address] [place] [address] [id number] WAYNE GRAHAM Self - patient is the insured Medical (General) History Medical History History ICD Code Hypertension Hyperlipidemia CAD-CABG as below Denies CA,DM,CVA,Lung disease,renal dise ase Tubulovillous adenoma of major [...]
== END 2024-10-29 11:17 | disposition home or self-care (01) ==
LOC: HO.HMCH 10:54
PROVIDERS: PCP Internal Medicine; Visit Provider Internal Medicine
DX: I25.10 Atherosclerotic heart disease of native coronary artery without angina pectoris (principal); E78.00 Pure hypercholesterolemia, unspecified; M25.511 Pain in right shoulder; M25.512 Pain in left shoulder; Z90.410 Acquired total absence of pancreas; Z90.49 Acquired absence of other specified parts of digestive tract

== ENCOUNTER → 2024-10-29 10:53 | Outpatient (BNVA) | payer MEDICARE, MEDICAID, SELFPAY | PROVIDERS: PCP Internal Medicine; Visit Provider Internal Medicine | DX: I25.10 Atherosclerotic heart disease of native coronary artery without angina pectoris (principal); E78.00 Pure hypercholesterolemia, unspecified; M25.511 Pain in right shoulder; M25.512 Pain in left shoulder; Z90.410 Acquired total absence of pancreas; Z90.49 Acquired absence of other specified parts of digestive tract | CPT/HCPCS: 96127; 99212 ==

== ENCOUNTER 2024-11-20 12:59 | Outpatient (AMB) | payer MEDICARE, SELFPAY ==
[2024-11-20 13:19] VITALS: BP 130/60; PULSE 62; BMI 26.1
--- NOTE | 2024-11-20 13:19 | MHC.OFFVIS ---
Vital Signs 11/20/24 13:19 Height 5 ft 7 in Weight 166 lb 10.711 oz BMI 26.1 BP 130/60 Blood Pressure Location Rt brachial Position Sitting Pulse 62 Pulse Source Pulse Oximeter Intake Visit Reasons: 6m follow up [employer] Worker Services: [employer] Worker Offered & Declined Accompanied by: Spouse Allergies No Known Allergies (No Known Allergies*) Allergy (Verified 11/20/24 13:22) Medication List - Last Reconciled 11/20/24 by Fermín Timmons NP aspirin (Adult Aspirin Regimen) 81 mg PO DAILY atorvastatin 20 mg PO BEDTIME celecoxib 200 mg PO DAILY PRN 30 days yrtbbk-ssnmsvxa-qfczqoy 6,000-19,000 -30,000 unit (Creon) 2 caps PO BID 30 days metoprolol succinate ER 50 mg PO DAILY multivitamin 1 tab PO DAILY omeprazole 20 mg PO DAILY ondansetron 4 mg PO Q6-8H PRN HPI Comments Details: This is a 69-year-old male patient coming in for a follow-up visit, accompanied by his . Patient with a history of hyperlipidemia, coronary artery disease status post CABG x1 in 2002. Today, patient is reporting feeling well overall without any cardiac symptoms of exertional chest pain, shortness of breath, palpitations, dizziness, orthopnea, PND, leg edema, presyncope or syncope. Patient is reporting compliance with all his medications. No reported signs of bleeding or falls. [facility] Medical History Pure hypercholesterolemia Neuropathy COVID DJD (degenerative joint disease) Ampullary adenoma Bleeding hemorrhoids Diverticulosis Atherosclerotic cardiovascular disease HTN (hypertension) Elevated cholesterol CAD (coronary artery disease) Surgical History H/O Whipple procedure S/P CABG x 1 History of incisional hernia repair Hx of right inguinal hernia repair Hx of endoscopic retrograde cholangiopancreatography H/O colonoscopy History of Whipple procedure Hx of coronary artery bypass graft Family History Mother No problems noted. Brother Heart problem Father Heart problem Social History Housing: House Alcohol intake: never Patient Tobacco Use Status: Never used Tobacco e-Cigarette/Vaping Use: Never Used Second Hand Smoke Exposure: No Advance Directives Date on File: 04/12/24 service: No Current occupational status: unemployed Current occupational exposures/hazards: No Cognitive needs: No Hearing needs: No Vision needs: No Review of Systems Const Denies daytime sleepiness, Denies difficulty sleeping, Denies snoring, Denies stops breathing during sleep and Denies weakness Card Denies chest pain, Denies rapid heart rate, Denies irregular heart rhythm, Denies claudication, Denies leg edema, Denies lightheadedness, Denies palpitations, Denies dyspnea, Denies dyspnea on exertion, Denies orthopnea, Denies paroxysmal nocturnal dyspnea and Denies slow heart rate Resp Denies cough, Denies dyspnea, Denies dyspnea on exertion and Denies snoring GI Reports no additional complaints, Denies hematochezia, Denies change in stool character and Denies dyspepsia Musc Denies abnormal gait, Denies muscle weakness and Denies numbness Neuro Denies abnormal gait, Denies numbness and Denies weakness Endo Denies palpitations Physical Exam Vital Signs: Last Vital Signs Pulse 62 11/20/24 13:19 BP 130/60 11/20/24 13:19 BMI result Body Mass Index 26.1 Const General: cooperative, healthy appearing, comfortable and no acute distress Orientation/consciousness: patient oriented x3 HEENT Head: Yes normal to inspection Neck Neck: Yes normal visual inspection, Yes trachea midline and Yes supple Chest Chest palpation & inspection: normal inspection of the chest Resp Effort & Inspection: normal respiratory effort Auscultation: clear to auscultation bilaterally, no crackles, no rales, no rhonchi and no wheezes Cardio Jugular venous distension: no JVD Palpation: normal PMI Rate: regular rate Rhythm: regular rhythm Heart sounds: S1 normal heart sound present, S2 normal heart sound present, no click, no gallops, no murmurs and no rubs Peripheral pulses: Peripheral pulses 2+ throughout GI Inspection: Yes normal to inspection Palpation (GI): Soft to palpation Auscultation: normal bowel sounds Skin General skin exam: no rashes or lesions noted Neuro General: patient oriented x3 Extrem General: Yes normal to inspection, No no pedal edema and No calf tenderness Psych Appearance: grossly normal Mental Status: mental status grossly normal Speech and movement: Normal speech and movement present Assessment & Plan Assessment & Plan (1) Atherosclerotic cardiovascular disease: Code(s): I25.10 - Atherosclerotic heart disease of false pass coronary artery without angina pectoris Category: Medical Plan: 06/29/2023-echo study showed a mildly reduced LV systolic function with an ejection fraction between 40-45%, with akinetic inferolateral wall, basal inferior, mid inferior, and basal inferoseptal segments. Also showed mildly decreased LV systolic function. 07/31/2023-patient underwent a myocardial perfusion study that showed mixed ischemia in the basal to mid inferior wall and adjacent inferoseptal, and inferolateral wall. History of CABG in 2002. Clinically stable and euvolemic. Continue lifelong aspirin therapy. No reported signs of bleeding. Continue metoprolol therapy. Continue statin therapy with an LDL goal less than 70. Most recent LDL at 62. If patient develops any anginal symptoms, plan is for patient to undergo cardiac catheterization. Patient understanding of this plan. (2) Status post aorto-coronary artery bypass graft: Code(s): Z95.1 - Presence of aortocoronary bypass graft Category: Surgical Plan: As above. (3) Pure hypercholesterolemia: Code(s): E78.00 - Pure hypercholesterolemia, unspecified Category: Medical Plan: As above. Advised heart healthy diet, regular exercise, med compliance, and aggressive management of vascular risk factors. Patient will follow up in 6 months. In the interim, patient will call us with the office with any concerns or change in symptoms. Advised to seek ER care in case of exertional chest pain not resolved with rest. This note was generated using voice recognition software. While every effort has been made to ensure accuracy and proper professional employer consultant, there may be occasional errors that could affect the content or meaning of the described symptoms. Coding Level of Care Code Est Pt Level 4 (99269) Complex EM visit Add On G2211 Diagnoses Atherosclerotic cardiovascular disease I25.10 Status post aorto-coronary artery bypass graft Z95.1 Pure hypercholesterolemia E78.00 Time Spent (min) 31 Comment Time spent in reviewing the chart, test results, assessment, counseling and documentation.
--- OUTSIDE RECORDS SUMMARY | 2024-11-20 14:15 | XMS_ITS | Patient Health Record ---
Author Organization [facility] Address [address] [place] [address] Care Team Providers Care Union Organizer Name Role Phone Darren (RETIRED) Philip VALLES Primary Care Provider Unavailable Ladarius Oneal Unavailable [phone] ruben sterling Unavailable Unavailable Reason For Referral [...] Omeprazole 20 MG TAKE 1 CAPSULE BY [facility] EVERY DAY AT BEDTIME DIRECTED [...] Problem Status W/U Status Risk Notes Problem [id number] Encounter for screening for malignant neoplasm of colon (Z12.11) Active confirmed Problem Diverticular disease of colon (579948826) Diverticulosis of large intestine without perforation or abscess without bleeding (K57.30) Active confirmed Problem Chronic gastritis (5078323) Gastritis, chronic (K29.50) Active confirmed Problem 082706514 Ampullary adenom a (D13.5) Active confirmed Problem 748927612 Abdominal pain, generalized (R10.84) Active confirmed Problem 512913592 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) Active confirmed Problem 028677832 Gastroesophageal reflux disease, unspecified whether esophagitis present (K21.9) Active confirmed Plan Of Treatment Future Test Test Name Order Date COLONOSCOPY 02/07/2011 COLONOSCOPY 05/21/2018 UPPER GI ENDOSCOPY 12/07/2022 COLONOSCOPY 12/07/2022 Insurance Providers Payer Name Payer Address Payer Phone Subscriber Number Group Number Insured Name Patient Relationship to Insured Coverage Start Date Coverage End Date MEDICARE OF [place] [address] [place] [address] [id number] WAYNE GRAHAM Self - patient is the insured Medical (General) History Medical History History ICD Code Hypertension Hyperlipidemia CAD-CABG as below Denies [place],DM,CVA,Lung disease,renal dise ase Tubulovillous adenoma of major [...]
== END 2024-11-20 13:50 | disposition home or self-care (01) ==
LOC: HO.HCS 13:00
PROVIDERS: PCP Family Medicine
DX: I25.10 Atherosclerotic heart disease of native coronary artery without angina pectoris (principal); Z95.1 Presence of aortocoronary bypass graft; E78.00 Pure hypercholesterolemia, unspecified
CPT/HCPCS: 99214; G2211

== ENCOUNTER → 2024-11-20 12:59 | Outpatient (BNVA) | payer MEDICARE, SELFPAY | PROVIDERS: PCP Family Medicine | DX: I25.10 Atherosclerotic heart disease of native coronary artery without angina pectoris (principal); E78.00 Pure hypercholesterolemia, unspecified; Z95.1 Presence of aortocoronary bypass graft | CPT/HCPCS: 99212 ==

== ENCOUNTER 2025-02-24 11:53 | Emergency (ER) | payer MEDICARE, MEDICAID, SELFPAY ==
--- NOTE | ~2025-02-24 | XR_ITS ---
EXAMINATION: XR CHEST CLINICAL INFORMATION: FEver. pneumonia? COMPARISON: Previous chest x-ray July 2024 TECHNIQUE: Frontal view of the chest was obtained. FINDINGS: Airspace disease at the right lung base/cardiophrenic angle region suggestive of pneumonia. Lungs are otherwise clear. No pleural effusion or pneumothorax. Cardiac and mediastinal contours are normal. No acute bone abnormality.Median sternotomy wires. XR/XR chest 1V IMPRESSION: Right base pneumonia. Electronically signed by: Mari Veliz MD 02/24/2025 01:12 PM [email or web address]
[2025-02-24 12:35] VITALS: BP 142/71; PULSE 99; RESP 16; TEMP 38.2; O2SAT 94; BMI 26.4
--- NOTE | 2025-02-24 12:41 | ED_ITS ---
HPI - General Adult General Chief complaint: Fever Stated complaint: fever Time Seen by Provider: 02/24/25 16:24 History of Present Illness ED Provider: Fidelia Monroe NP HPI narrative: 69-year-old male medical history significant for CAD status post CABG in 2002, last echocardiogram 06/2023 showed EF 40-45%, hyperlipidemia, chronic shoulder pain, history of a Whipple procedure, acquired absence of the pancreas, presents to the ED with his with chief complaint of fever ongoing since Sunday, approximately 4-5 days. He reports symptoms also include generalized malaise and fatigue, some nausea without vomiting. T-max at home 101.8 ? F, resolving with Tylenol. His reports that his urine has been very dark in color, despite her pushing oral fluids for the patient. He denies any chest pain or pressure, palpitations. Does report some shortness of breath exertionally, cough that is nonproductive. Denies urinary complaints including dysuria, hematuria, urgency or frequency. No diarrhea or constipation. No episodes of syncope, dizziness or lightheadedness. Related Data Home Medications ?Medication ?Instructions ?Recorded ?Confirmed multivitamin 1 tab PO DAILY 03/05/23/07/11 aspirin 81 mg tablet,delayed 81 mg PO DAILY 06/06/23 0 11/20/24 release (Adult Aspirin Regimen) Previous Rx's ?Medication ?Instructions ?Recorded ondansetron 4 mg disintegrating 4 mg PO Q6-8H PRN naus ea and 07/21/24 tablet vomiting #7 tabs celecoxib 200 mg capsule 200 mg PO DAILY PRN severe p ain 30 09/14/24 days #30 caps cevtji-fstuzmby-pdljcao 2 cap PO BID 30 days #120 ca ps 10/29/24 (pork)6,000-19,000-30,000 unit capsule,del rel (Creon) atorvastatin 20 mg tablet 20 mg PO BEDTIME #90 tabs metoprolol succinate 50 mg 50 mg PO DAILY #90 tabs tablet,extended release 24 hr omeprazole 20 mg capsule,delayed 20 mg PO DAILY #90 ca ps 02/02/25 release amoxicillin 875 mg-potassium 1 tab PO BID 7 days #14 t abs 02/24/25 clavulanate 125 mg tablet azithromycin 250 mg tablet 250 mg PO DAILY 6 days #6 t abs 02/24/25 Allergies Allergy/AdvReac Type Severity Reaction Status Date / Time No Known Allergies (No Known Allergy Verified 02/24/25 12:37 Allergies*) Review of Systems 2 Review of Systems: ROS is otherwise negative unless mentioned in HPI. [facility] Past Medical History Medical History Pure hypercholesterolemia Neuropathy COVID DJD (degenerative joint disease) Ampullary adenoma Bleeding hemorrhoids Diverticulosis Atherosclerotic cardiovascular disease HTN (hypertension) Elevated cholesterol CAD (coronary artery disease) Surgical History H/O Whipple procedure S/P CABG x 1 History of incisional hernia repair Hx of right inguinal hernia repair Hx of endoscopic retrograde cholangiopancreatography H/O colonoscopy History of Whipple procedure Hx of coronary artery bypass graft Family History Family History Mother No problems noted. Brother Heart problem Father Heart problem Social History Social History Housing: House Alcohol intake: never Patient Tobacco Use Status: Never used Tobacco Smoked in Last 30 Days: No e-Cigarette/Vaping Use: Never Used Second Hand Smoke Exposure: No Use of substances other than those prescribed or required for medical reasons: No Advance Directives: Yes Advance Directives on File: Yes Advance Directives Date on File: 04/08/24 Do you have a plan to hurt others: No Plan service: No Current occupational status: unemployed Current occupational exposures/hazards: No Cognitive needs: No Hearing needs: No Vision needs: No Physical Exam ED Exam Exam: Nursing notes and vital signs reviewed. Constitutional: Well-appearing, NAD. Alert. Oriented X3. Eyes: EOMI. ENT: Pharynx normal. Neck: Normal inspection. Neck supple. CVS: Normal heart rate and rhythm. Pulses normal. Respiratory: No respiratory distress. Breath sounds diminished. Abdomen: Soft and nontender, nondistended. Skin: Skin warm and dry. Normal skin color. Extremities: No lower extremity edema. Neuro: Oriented X 3. No motor deficit. Vital Signs: Vital Signs - 24 hr 02/24/25 12:35 02/24/25 15:49 02/24/25 16:34 Temperature 100.8 F H 102.4 F H 99.8 F Pulse Rate 99 102 H 92 Respiratory Rate 16 18 19 Blood Pressure 142/71 H 136/80 150/85 H Pulse Oximetry 94 92 93 Oxygen Delivery Method Room Air Room Air Room Air 02/24/25 16:55 02/24/25 20:56 02/24/25 21:47 Temperature 99.7 F 98.3 F 98.3 F Pulse Rate 82 67 67 Respiratory Rate 20 20 20 Blood Pressure 137/76 123/68 123/68 Pulse Oximetry 95 95 95 Oxygen Delivery Method Room Air Room Air Room Air BMI result Body Mass Index 26.4 Course Course Course Narrative: RME: 69-year-old male presents to ED for ED, malaise, nausea slight lower abdominal pain. Patient denies any chest pain or shortness of breath. Labs UA x-ray ordered. 3:56pm: Patient is now septic hypoxic 92% febrile 102.4 tachycardic. Patient to be to the ED for IV antibiotics. Medications Administered Discontinued Medications Generic Name Dose Route Start Last Admin Trade Name Freq PRN Reason Stop Dose Admin Acetaminophen 975 mg 02/24/25 15:53 02/24/25 15:54 Acetaminophen 325 Mg Tablet PO 02/24/25 15:54 975 mg ONCE ONE Administration Ceftriaxone Sodium 1 gm/ 50 mls @ 100 mls/hr 02/24/25 15:51 02/24/25 17:16 Sodium Chloride IV 02/24/25 16:20 Infused ONCE ONE Infusion Azithromycin 500 mg/ Sodium 250 mls @ 125 mls/hr 02/24/25 15:51 02/24/25 19:39 Chloride IV 02/24/25 17:50 Infused ONCE ONE Infusion Sodium Chloride 1,000 mls @ 999 mls/hr 02/24/25 16:29 02/24/25 18:41 Ns IV 02/24/25 17:29 Infused .Q1H1M ONE Infusion Ondansetron HCl 4 mg 02/24/25 15:49 02/24/25 15:53 Ondansetron Odt 4 Mg Tab.Rapdis TRANSLINGU 02/24/25 15:50 4 mg ONCE STA Administration Medical Decision Making Medical Decision Making MDM Narrative: 4:39 PM 02/24/2025 (Fidelia Monroe NP): Upon my initial assessment of the patient, he is alert, oriented x3. He is borderline hypoxic at 93 or 95% on room air while sitting down. He denies any shortness of breath at rest. His heart rate is in the low 90s; there is no evidence of tachycardia. His fever has resolved, he is 99.8? F orally after a dose of Tylenol. I reviewed his workup that was ordered by the triage provider. He has no leukocytosis, with a white blood cell count of 8.5. Does have some neutrophil predominance at 82.6. Creatinine 1.05, BUN 32, mildly increased in comparison to previous. Total bili is 1.3, which appears to be his baseline. Lipase is flat. Negative COVID, flu, RSV. The x-ray of his chest shows evidence of pneumonia, correlating with his presentation today. He has been ordered to receive Rocephin, azithromycin. I have also ordered a fluid bolus given the previous fever and tachycardia. At this time I do not have clinical concern for sepsis. A lactic acid level has been ordered, which is pending at this time. I am also pending a urinalysis. Will reassess. 4:49 PM-- Lactic is flat. No clinical concern for sepsis. 9:00 PM-- on reassessment, fever has completely resolved, he is no longer borderline hypoxic. He is 94-95% on room air. Ambulatory pulse ox is 95%. His curb 65 score is moderate risk group score of 2. I offered admission to the hospital to him for IV antibiotics and monitoring but he has declined at this time and would prefer to go home. We will discharge him with oral antibiotics Augmentin, azithromycin and have him follow up with his PCP within the next 1-3 days. He is agreeable. I spoke with his Sandra via phone ([phone]) who is agreeable to discharge plan. She is agreeable to have him seen by the PCP in the next few days. He was given strict return precautions to the ED. Differential Diagnosis Differential Diagnoses: The differential diagnosis associated with the presentation includes Pneumonia, viral illness, cystitis, bronchitis. Admission/Observation Consideration of admission/observation: Escalation of care including admission/observation considered (Considered, offered, declined by patient.) Lab Data MDM Lab Attestation statement: I reviewed the patient's lab results. (Overall reassuring.) 02/24/25 13:30 02/24/25 13:30 Labs: Lab Results 02/24/25 02/24/25 02/24/25 Range/Units 13:30 16:14 20:47 WBC 8.5 (4.8-10.8) X10*3/uL RBC 4.94 (4.60-5.80) X10*6/uL Hgb 15.0 (14.0-18.0) g/dl Hct 44.5 (42.0-52.0) % MCV 90.1 (80.0-98.0) fL MCH 30.4 (27.0-33.0) pg MCHC 33.7 (31.0-36.0) g/dl RDW 12.7 (11.0-16.0) % Plt Count 171 (160-400) X10*3/uL MPV 10.6 (9.4-12.4) fL Immature Gran % (Auto) 0.4 (0.0-0.4) % Neut % (Auto) 82.6 H (45-73) % Lymph % (Auto) 9.8 L (20-40) % [place] % (Auto) 6.6 (2-11) % Eos % (Auto) 0.2 (0-4) % Baso % (Auto) 0.4 (0-2) % Lymph # (Auto) 0.8 L (1.2-4.9) X10*3/uL [place] # (Auto) 0.6 (0.1-1.2) X10*3/uL Eos # (Auto) 0.0 (0.0-0.4) X10*3/uL Baso # (Auto) 0.0 (0.0-0.2) X10*3/uL Abs Immat Gran (auto) 0.03 (0.00-0.03) X10*3/uL Absolute Neuts (auto) 7.0 (2.0-8.3) x10*3/uL Absolute Nucleated RBC 0.000 (0.0-0.012) X10*3/uL Nucleated RBC % (auto) 0.0 (0.0-0.2) /100WBC Sodium 134 L (135-145) mmol/L Potassium 4.8 (3.3-5.1) mmol/L Chloride 101 (96-108) mmol/L Carbon Dioxide 26 (22-29) mmol/L Anion Gap 12 (12-20) BUN 32 H (9-16) mg/dL Creatinine 1.05 (0.5-1.4) mg/dL Estim Creat Clear Calc 61.6 Estimated GFR > 60 Random Glucose 140 H (60-115) mg/dL Lactic Acid 1.7 (0.5-2.0) mmol/L Calcium 9.2 (8.4-10.2) mg/dL Total Bilirubin 1.3 H (0.0-1.0) mg/dL AST 25 (5-37) U/L ALT 16 (0-40) U/L Alkaline Phosphatase 94 (39-117) U/L Total Protein 7.5 (6.5-8.0) g/dL Albumin 4.2 (3.5-5.0) g/dL Lipase 8 (8-78) U/L Urine Color Yellow Urine Appearance Clear Urine pH 5.5 (5.0-9.0) Ur Specific [place] 1.025 (1.005-1.025) Urine Protein 30 (1+) H (Neg-Trace) mg/dL Urine Glucose (UA) Negative (Negative) mg/dL Urine Ketones Trace (Negative) mg/dL Urine Blood Large (3+) H (Negative) Urine Nitrite Negative (Negative) Ur Leukocyte Esterase Negative (Negative) Urine RBC >20 H (0-2) /HPF Urine WBC 0-5 (0-5) /HPF Ur Squamous Epith Cells 0-2 (0-2) /HPF Urine Bacteria None Seen (None Seen) Hyaline Casts 0-2 (0-2) /LPF Influenza Type A (PCR) NEGATIVE (Negative) Influenza Type B (PCR) NEGATIVE (Negative) RSV RNA Qual (PCR) NEGATIVE (Negative) SARS-CoV-2 RNA (RT-PCR) NEGATIVE (Negative) Independent Interpretation I performed an independent interpretation of an: EKG and Plain X-Ray Interpretation: Rate: 80 Rhythm: NSR [place]: 48/-6/1 Normal P waves. Normal MICHELLE. Normal QRS complex. ST T wave : no dep, elev qTC: 475 prior studies: similar The study has been interpreted contemporaneously by me. I have reviewed the patient's imaging and agree with the radiologist's findings. Radiology Impression Discussion of test interpretation with radiology: I have reviewed the radiologist's reading. Radiologist Impression: XR/XR chest 1V IMPRESSION: Right base pneumonia. Independent Historian Clinical information obtained from an independent historian. History obtained from or confirmed by: Spouse ( at bedside. ) External Record Review External record reviewed: Office record, Outpatient record, Prior outpatient labs and Other (prior ER visit) Chronic Conditions Patient?s care impacted by: Hypertension and Other (CAD) Social Determinants Patient?s care significantly limited by Social Determinants of Health including: Problems related to primary support group Discharge Plan Discharge Clinical Impression: Pneumonia, Fever Patient Disposition: Home, Self-Care Instructions: Community Acquired Pneumonia (DC) Additional Instructions: As we discussed, the x-ray of the chest shows a pneumonia in the right lung base. I have prescribed you antibiotics. Please take the full course of the antibiotics as prescribed. Your viral panel is negative for COVID, flu, RSV. Your lab work was overall reassuring. You did have a fever here upon arrival, and it is very important that you use [id number] Tylenol, ibuprofen alternating every 4-6 hours for this. If you develop any fever, chills, difficulty with your breathing, worsening cough or feel that you are not getting better over the next 1-3 days, it is very important that you return back to the ED for further assessment. Please see your PCP in the next 1-3 days for reassessment as well. Prescriptions: New amoxicillin-pot clavulanate 875-125 mg tablet 1 tab PO BID 7 Days Qty: 14 0RF azithromycin 250 mg tablet 250 mg PO DAILY 6 Days Qty: 6 0RF Rx Instructions: start on day 2 of therapy No Action celecoxib 200 mg capsule 200 mg PO DAILY PRN (Reason: severe pain) 30 Days Qty: 30 1RF Rx Instructions: Take with food only as needed for severe pain atorvastatin 20 mg tablet 20 mg PO BEDTIME Qty: 90 2RF metoprolol succinate 50 mg tablet extended release 24 hr 50 mg PO DAILY Qty: 90 0RF omeprazole 20 mg capsule,delayed release(DR/EC) 20 mg PO DAILY Qty: 90 0RF multivitamin Tablet 1 tab PO DAILY ondansetron 4 mg tablet,disintegrating 4 mg PO Q6-8H PRN (Reason: nausea and vomiting) Qty: 7 0RF aspirin [Adult Aspirin Regimen] 81 mg tablet,delayed release (DR/EC) 81 mg PO DAILY Creon 6,000-19,000 -30,000 unit capsule,delayed release(DR/EC) 2 cap PO BID 30 Days Qty: 120 1RF Referrals: Ronan Lmoas MD [Primary Care Provider, Internal Medicine] Interventions: ED Discharge Assessment Last Done: 02/24/25 21:47 Discharge Date/Time: 02/24/25 21:52 Print Language: Indonesian
[2025-02-24 13:35] LABS: MANUAL DIFF FLAG NO
[2025-02-24 13:37] LABS: Hematocrit 44.5 % (42.0-52.0); Hemoglobin 15.0 g/dl (14.0-18.0); Imm Gran Abs Auto 0.03 X10*3/uL (0.00-0.03); Imm Gran Pct Auto 0.4 % (0.0-0.4); Lymphocytes Absolute Auto 0.8 X10*3/uL (1.2-4.9); Mean Corpuscular HGB Conc 33.7 g/dl (31.0-36.0); Mean Corpuscular Hemoglobin 30.4 pg (27.0-33.0); Mean Corpuscular Volume 90.1 fL (80.0-98.0); NRBC Abs Auto 0.000 X10*3/uL (0.0-0.012); NRBC Pct Auto 0.0 /100WBC (0.0-0.2); Platelet Count 171 X10*3/uL (160-400); Red Blood Count 4.94 X10*6/uL (4.60-5.80); White Blood Count 8.5 X10*3/uL (4.8-10.8)
[2025-02-24 13:53] LABS: Alanine Aminotransferase 16 U/L (0-40); Albumin Level 4.2 g/dL (3.5-5.0); Alkaline Phosphatase 94 U/L (39-117); Anion Gap 12 (12-20); Aspartate Amino Transferase 25 U/L (5-37); Blood Urea Nitrogen 32 mg/dL (9-16); Calcium 9.2 mg/dL (8.4-10.2); Carbon Dioxide 26 mmol/L (22-29); Chloride 101 mmol/L (96-108); Creatinine Clr Calc Pharmacy 61.6; Estimated Glomerular Filt Rate > 60; Lipase 8 U/L (8-78); Potassium 4.8 mmol/L (3.3-5.1); Sodium 134 mmol/L (135-145); Total Protein 7.5 g/dL (6.5-8.0)
[2025-02-24 14:16] LABS: Resp Syncy Virus RNA Qual PCR NEGATIVE (Negative); SARS COV2 PCR INHOUSE NEGATIVE (Negative)
[2025-02-24 15:49] VITALS: BP 136/80; PULSE 102; RESP 18; TEMP 39.1; O2SAT 92
[2025-02-24 16:34] VITALS: BP 150/85; PULSE 92; RESP 19; TEMP 37.7; O2SAT 93
[2025-02-24 16:55] VITALS: BP 137/76; PULSE 82; RESP 20; TEMP 37.6; O2SAT 95
--- NOTE | 2025-02-24 17:28 | ECG_ITS ---
Test Reason : SOB Blood Pressure : */* mmHG Vent. Rate : 80 BPM Atrial Rate : 80 BPM P-R Int : 156 ms QRS Dur : 102 ms QT Int : 412 ms P-R-T Axes : 48 -6 1 degrees QTcB Int : 475 ms Normal sinus rhythm Inferior infarct (cited on or before 08-Jul-2002) Anterior infarct (cited on or before 29-Apr-2016) Abnormal ECG When compared with ECG of 21-Jul-2024 11:47, No significant change was found Referred By: Fidelia Monroe Electronically Signed By: ALEXIA PYLE MD
[2025-02-24 20:54] LABS: Appearance Urine Clear; Glucose Urine UA Negative (Negative); PH 5.5 (5.0-9.0); Specific Gravity - Urine 1.025 (1.005-1.025); UMIC TRIGGER UACC YES
--- NOTE | 2025-02-24 20:54 | PC.NURSE ---
walking o2 sat did not drop below 93%. 92% when laying back in bed after ambualting. provider. aware.
[2025-02-24 20:56] VITALS: BP 123/68; PULSE 67; RESP 20; TEMP 36.8; O2SAT 95
[2025-02-24 21:47] VITALS: BP 123/68; PULSE 67; RESP 20; TEMP 36.8; O2SAT 95
--- OUTSIDE RECORDS SUMMARY | 2025-02-24 23:00 | XMS_ITS | Patient Health Record ---
Author Organization [facility] Address [address] [place] [address] Care Team Providers Care Equipment Validation Specialist Name Role Phone Darren (RETIRED) Philip VALLES Primary Care Provider Unavailable Ladarius Oneal Unavailable [phone] ruben sterling Unavailable Unavailable Reason For Referral No Information Medications Medication SIG (Take, Route, Frequency, Duration) Notes Start Date End Date Status Aspir-81 81 MG Tablet Delayed Release 1 tablet Orally Once a day Active Creon 6000 UNIT Capsule Delayed Release Particles as directed Orally twice a day Active Atorvastatin Calcium 10 MG Tablet 1 tablet Orally Once a day; Duration: 30 day(s) Active Multivitamin Adults - Tablet as directed Orally as directed Active Sucralfate 1 GM Tablet TAKE 1 TABLET TWI A DAY--TAKE 2 HOURS AFTER YOUR MORNING MEAL AND 2 HOURS AFTER YOUR EVENING MEAL; Duration: 90 Active Co Q 10 10 MG Capsule 1 capsule with a m eal Orally Once a day; Duration: 30 day(s) Active Omeprazole 20 MG Capsule Delayed Release TAKE 1 CAPSULE BY MOUTH EVERY DAY AT BEDTIME DIRECTED Oral; Duration: 90 Active Metoprolol Succinate ER 50 MG Tablet Extended Release 24 Hour TAKE 1 TABLET BY MOUTH EVERY DAY Oral; Duration: 90 Active Social History Social History Drugs/Alcohol: Social Info Question Answer Notes Alcohol Screen Did you have a drink containing alcohol in the past year? No Points 0 Interpretation Negative Additional Details Category Social Info Options Details Miscellaneous: Marital status: Occupation: [employer] Section Notes: He does not smoke or use any significant amounts of alcohol He does not smoke or use any significant amounts of alcohol He does not smoke or use any significant amounts of alcohol Problems Problem Type SNOMED Code ICD Code Onset Dates Problem Status W/U Status Risk Notes Problem Screening for malignant neoplasm of colon (441026280) Encounter for screening for malignant neoplasm of colon (Z12.11) Active confirmed Problem Diverticular disease of colon (925462493) Diverticulosis of large intestine without perforation or abscess without bleeding (K57.30) Active confirmed Problem Chronic gastritis (8156781) Gastritis, chronic (K29.50) Active confirmed Problem 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 Problem Generalized abdominal pain (864775473) Abdominal pain, generalized (R10.84) Active confirmed Problem Tubulovillous adenoma (05912497) 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) Active confirmed Problem Gastroesophageal reflux disease (759579831) Gastroesophageal reflux disease, unspecified whether esophagitis present (K21.9) Active confirmed Plan Of Treatment Future Test Test Name Order Date COLONOSCOPY 02/07/2011 COLONOSCOPY 05/21/2018 UPPER GI ENDOSCOPY 12/07/2022 COLONOSCOPY 12/07/2022 Insurance Providers Payer Name Payer Address Payer Phone Subscriber Number Group Number Insured Name Patient Relationship to Insured Coverage Start Date Coverage End Date MEDICARE OF [place] [address] [facility] [address] [id number] WAYNE GRAHAM Self - patient is the insured Medical (General) History Medical History History ICD Code Hypertension Hyperlipidemia CAD-CABG as below Denies AK,DM,CVA,Lung disease,renal dise ase Tubulovillous adenoma of major papilla a s below Screening colonoscopy in 2011 was neg. 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 Oglesby at [facility] [place]. He describes a wound infection requiring a wound-vac Incisional hernia 12/2016-Dr. Oglesby x2
== END 2025-02-24 21:52 | disposition home or self-care (01) ==
PROVIDERS: Physician Assistant; Emergency Provider Emergency Medicine; PCP Internal Medicine
DX: J18.9 Pneumonia, unspecified organism (principal); R50.9 Fever, unspecified; R06.02 Shortness of breath; I25.10 Atherosclerotic heart disease of native coronary artery without angina pectoris; I10 Essential (primary) hypertension; E78.00 Pure hypercholesterolemia, unspecified; Z95.1 Presence of aortocoronary bypass graft
CPT/HCPCS: 36415; 71045; 80053; 81001; 81003; 83605; 83690; 85025; 87040; 87637; 93005; 96361; 96365; 96367; 99284; 99285; J0456; J0696

== ENCOUNTER → 2025-02-24 12:40 | Outpatient (BNV) | payer MEDICARE, MEDICAID, SELFPAY | PROVIDERS: PCP Internal Medicine; Visit Provider Radiology Diagnostic Radiology | DX: J18.9 Pneumonia, unspecified organism (principal) | CPT/HCPCS: 71045 ==

== ENCOUNTER → 2025-02-24 17:28 | Outpatient (BNV) | payer MEDICARE, MEDICAID, SELFPAY | PROVIDERS: Emergency Provider Emergency Medicine; PCP Internal Medicine; Visit Provider Internal Medicine Cardiovascular Disease | DX: I25.2 Old myocardial infarction (principal) | CPT/HCPCS: 93010 ==